=== PATIENT | female | born 1985 | race Caucasian/White ===

== ENCOUNTER 2017-02-01 00:22 | Emergency (ER) | payer MEDICAID ==
[~2017-02-01] VITALS: Ht 154.9 cm; Wt 56.7 kg
[~2017-02-01 00:22] MED LIST: ALBUAER3 IN; LORA-622 PO; MOME200A INH; MONT10TA34 OR
[2017-02-01] MEDS ORDERED: ALBUTEROL SULF 2.5 MG/0.5ML(0.5%) NEB SOLN ONE (00:35)
[2017-02-01] MEDS ORDERED: methylPREDNISolone SOD SUCC 125 MG/2 ML VL IV ONE (00:45)
[2017-02-01] MEDS ORDERED: ALBUTEROL SULF 2.5 MG/0.5ML(0.5%) NEB SOLN NEB ONE (00:45)
[2017-02-01 00:47] LABS: Basophils # (auto) 0.2 uL; Basophils % (auto) 1.8 % (0.0-2.0); Eosinophils # (auto) 0.5 uL; Eosinophils % (auto) 4.8 % (0.0-7.0); Hematocrit 42.1 % (36.0-46.0); Hemoglobin 13.8 g/dL (12.2-16.2); Lymphocytes # (auto) 4.7 uL; Lymphocytes % (auto) 44.2 % (10.0-50.0); Mean Corpuscular Hemoglobin 27.9 pg (28.0-32.0); Mean Corpuscular Hgb Conc. 32.7 g/dL (32.0-36.0); Mean Corpuscular Volume 85.4 fL (80.0-100.0); Mean Platelet Volume 8.3 fL (7.4-10.4); Monocytes # (auto) 0.9 uL; Neutrophils # (auto) 4.4 uL; Neutrophils % (auto) 41.2 % (37.0-80.0); Platelet Count (auto) 399 10^3/uL (140-450); Red Cell Distribution Width 13.8 % (11.6-16.0); White Blood Cell 10.7 10^3/uL (4.4-10.8)
[2017-02-01] MEDS ORDERED: ONDANSETRON HCL 4 MG/2 ML VIAL IV ONE (01:00)
[2017-02-01 01:06] LABS: Albumin 3.8 g/dL (3.4-5.0); BUN/Creatinine Ratio 28.1; Calcium 8.1 mg/dL (8.5-10.1); Potassium 3.7 mmol/L (3.5-5.1)
[2017-02-01 01:09] LABS: Bilirubin, Total 0.2 mg/dL (0.2-1.0)
[2017-02-01 02:44] VITALS: BP 117/58
== END 2017-02-01 02:54 | disposition home or self-care (01) ==
LOC: EDBD 00:22 → ER 02:20
DX: J45.901 Unspecified asthma with (acute) exacerbation (principal); J06.9 Acute upper respiratory infection, unspecified
CPT/HCPCS: 36415; 71010; 80053; 84702; 85025; 94644; 94660; 94761; 96374; 96375; 99285; J2405; J2930

== ENCOUNTER 2017-06-17 15:04 | Observation (INO) | payer MEDICAID ==
[~2017-06-17] VITALS: Ht 157.5 cm; Wt 54.4 kg
[2017-06-17] MEDS ORDERED: methylPREDNISolone SOD SUCC 125 MG/2 ML VL ONE (15:19)
[2017-06-17] MEDS ORDERED: methylPREDNISolone SOD SUCC 125 MG/2 ML VL IV ONE (15:30)
[2017-06-17] MEDS ORDERED: SODIUM CHLORIDE 0.9% 1,000 ML IV ONE (15:30)
[2017-06-17] MEDS ORDERED: ALBUTEROL SULF 2.5 MG/0.5ML(0.5%) NEB SOLN HHN ONE (15:30)
[2017-06-17] MEDS ORDERED: IPRATROPIUM BROM 0.5 MG/2.5ML INH SOL HHN ONE (15:30)
[2017-06-17 15:35] LABS: Basophils # (auto) 0.1 uL; Basophils % (auto) 0.9 % (0.0-2.0); CONDITION Y; Eosinophils # (auto) 0.5 uL; Eosinophils % (auto) 7.6 % (0.0-7.0); Hematocrit 47.5 % (36.0-46.0); Hemoglobin 15.9 g/dL (12.2-16.2); Lymphocytes # (auto) 2.6 uL; Lymphocytes % (auto) 43.6 % (10.0-50.0); Mean Corpuscular Hemoglobin 29.2 pg (28.0-32.0); Mean Corpuscular Hgb Conc. 33.5 g/dL (32.0-36.0); Mean Corpuscular Volume 87.1 fL (80.0-100.0); Mean Platelet Volume 8.5 fL (7.4-10.4); Monocytes # (auto) 0.5 uL; Monocytes % (auto) 8.5 % (0.0-12.0); Neutrophils # (auto) 2.3 uL; Neutrophils % (auto) 39.4 % (37.0-80.0); Platelet Count (auto) 396 10^3/uL (140-450); Red Cell Distribution Width 14.7 % (11.6-16.0); White Blood Cell 5.9 10^3/uL (4.4-10.8)
[2017-06-17 16:06] LABS: Albumin 4.6 g/dL (3.4-5.0); BUN/Creatinine Ratio 17.6; Bilirubin, Total 0.5 mg/dL (0.2-1.0); Calcium 8.2 mg/dL (8.5-10.1); Magnesium 2.6 mg/dL (1.6-2.6); Potassium 3.6 mmol/L (3.5-5.1); Total Protein 7.9 g/dL (6.4-8.2)
[2017-06-17 18:20] LABS: Urine Bilirubin Negative (Negative); Urine Color Yellow (Yellow); Urine Glucose Normal (Normal); Urine Mucus FEW (None Seen); Urine Nitrite Negative (Negative); Urine RBC <1 /hpf (0 - 4); Urine Squamous Epithelial Cell FEW /hpf (<5); Urine Urobilinogen Normal (Negative); Urine pH 5.5 (5.0-8.0)
[2017-06-17 18:26] LABS: Urine Blood 1+ /uL (Negative); Urine Ketone 1+ (Negative)
[2017-06-17 19:39] VITALS: BP 110/67
== END 2017-06-17 21:56 | disposition left against medical advice (07) | DRG 141 ==
LOC: EDBD 15:04 → ER 15:12 → OVERFLOW 15:26 → ER 21:56
PROVIDERS: ADMIT Family Medicine; ATTEND Family Medicine
DX: J45.901 Unspecified asthma with (acute) exacerbation (principal)
CPT/HCPCS: 36415; 71010; 80053; 81001; 83735; 85025; 87040; 94644; 96361; 96374; 99285; G0378; J2930; J7030

== ENCOUNTER 2017-12-26 15:14 | Emergency (ER) | payer MEDICAID ==
[~2017-12-26] VITALS: Ht 149.9 cm; Wt 52.2 kg
[2017-12-26 15:32] VITALS: BP 111/80
[2017-12-26] MEDS ORDERED: ALBUTEROL SULF 2.5 MG/0.5ML(0.5%) NEB SOLN NEB ONE ×2 (15:45→17:30)
[2017-12-26] MEDS ORDERED: IPRATROPIUM BROM 0.5 MG/2.5ML INH SOL NEB ONE ×2 (15:45→17:30)
== END 2017-12-26 18:11 | disposition home or self-care (01) ==
LOC: ER 15:18
DX: J45.901 Unspecified asthma with (acute) exacerbation (principal)
CPT/HCPCS: 71045; 94640

== ENCOUNTER 2019-04-02 06:35 | Emergency (ER) | payer MEDICAID, OTHER ==
[~2019-04-02] VITALS: Ht 152.4 cm; Wt 52.2 kg
[2019-04-02] MEDS ORDERED: SODIUM CHLORIDE 0.9% 1,000 ML IV ONE (06:55)
[2019-04-02] MEDS ORDERED: cefTRIAXone 1GM/50ML D5W 50 ML IV ONE (07:00)
[2019-04-02] MEDS ORDERED: methylPREDNISolone SOD SUCC 125 MG/2 ML VL IV ONE (07:00)
[2019-04-02] MEDS ORDERED: ALBUTEROL SULF 2.5 MG/0.5ML(0.5%) NEB SOLN NEB ONE (07:00)
[2019-04-02] MEDS ORDERED: IPRATROPIUM BROM 0.5 MG/2.5ML INH SOL NEB ONE (07:00)
[2019-04-02 08:06] LABS: Basophils # (auto) 0.1 uL; Basophils % (auto) 1.3 % (0.0-2.0); Eosinophils # (auto) 0.8 uL; Eosinophils % (auto) 11.6 % (0.0-7.0); Hemoglobin 14.7 g/dL (12.2-16.2); Lymphocytes # (auto) 1.7 uL; Lymphocytes % (auto) 23.2 % (10.0-50.0); Mean Corpuscular Hemoglobin 29.2 pg (28.0-32.0); Mean Corpuscular Hgb Conc. 32.7 g/dL (32.0-36.0); Mean Corpuscular Volume 89.3 fL (80.0-100.0); Monocytes # (auto) 0.5 uL; Monocytes % (auto) 6.4 % (0.0-12.0); Neutrophils # (auto) 4.1 uL; Neutrophils % (auto) 57.5 % (37.0-80.0); Platelet Count (auto) 315 10^3/uL (140-450); Red Blood Cells 5.04 10^6/uL (4.0-5.20); Red Cell Distribution Width 13.8 % (11.8-14.3); White Blood Cell 7.2 10^3/uL (4.4-10.8)
[2019-04-02 08:29] LABS: BUN/Creatinine Ratio 22.1
[2019-04-02 08:32] LABS: Bilirubin, Total 0.6 mg/dL (0.2-1.0); Total Protein 7.9 g/dL (6.4-8.2)
[2019-04-02 08:41] LABS: Urine Bacteria FEW /hpf (None Seen); Urine Blood Negative /uL (Negative); Urine Mucus FEW (None Seen); Urine Specific Gravity 1.026 (1.001-1.035); Urine WBC 2 /hpf (0 - 5)
[2019-04-02 09:56] VITALS: BP 117/77
== END 2019-04-02 09:46 | disposition home or self-care (01) ==
LOC: ER 06:35 → EDUNIT# 06:35 → EDBD 06:35 → ER 09:46
DX: J45.901 Unspecified asthma with (acute) exacerbation (principal); N39.0 Urinary tract infection, site not specified
CPT/HCPCS: 36415; 71045; 80053; 81001; 85025; 93005; 94640; 94761; 96365; 96366; 96375; 99284; J0696; J2930; J7030; J7611; J7644

== ENCOUNTER 2019-06-01 19:55 | Inpatient (IN) | payer MEDICAID, OTHER ==
[~2019-06-01] VITALS: Ht 152.4 cm; Wt 55.2 kg
[2019-06-01 12:40] VITALS: BP 106/64
[2019-06-01] MEDS ORDERED: IPRATROPIUM BROM 0.5 MG/2.5ML INH SOL NEB ONE (20:00)
[2019-06-01] MEDS ORDERED: ALBUTEROL SULF 2.5 MG/0.5ML(0.5%) NEB SOLN NEB ONE (20:00)
[2019-06-01] MEDS ORDERED: ALBUTEROL SULF 2.5 MG/0.5ML(0.5%) NEB SOLN ONE (20:05)
[2019-06-01] MEDS ORDERED: ACCU-CHEK COMFORT CURVE STRIP VI ONE (20:15)
[2019-06-01] MEDS ORDERED: LABETALOL HCL 5 MG/ML ML 20ML VIAL IV ONE (20:15)
[2019-06-01] MEDS ORDERED: NALOXONE HCL 0.4 MG/ML VIAL IV ONE (20:45)
[2019-06-01 20:46] LABS: Hematocrit 46.1 % (36.0-46.0); Hemoglobin 14.8 g/dL (12.2-16.2); Mean Corpuscular Hemoglobin 28.6 pg (28.0-32.0); Mean Corpuscular Hgb Conc. 32.1 g/dL (32.0-36.0); Mean Corpuscular Volume 89.3 fL (80.0-100.0); Platelet Count (auto) 444 10^3/uL (140-450); Red Blood Cells 5.16 10^6/uL (4.0-5.20); Red Cell Distribution Width 14.4 % (11.8-14.3); White Blood Cell 19.5 10^3/uL (4.4-10.8)
[2019-06-01 20:50] LABS: Basophils % (manual) 0 (0.0-2.0); Blast Cells 0; Metamyelocytes % 0; Myelocytes % 0; Promyelocytes % 0; Reactive Lymphocytes 0
[2019-06-01 21:06] LABS: Albumin 3.9 g/dL (3.4-5.0); Calcium 8.4 mg/dL (8.5-10.1); Potassium 3.7 mmol/L (3.5-5.1)
[2019-06-01 21:08] LABS: Salicylate < 1.7 mg/dL (2.8-20.0)
[2019-06-01 21:10] LABS: Bilirubin, Total 0.2 mg/dL (0.2-1.0); Total Protein 7.9 g/dL (6.4-8.2)
[2019-06-01 21:14] LABS: Acetaminophen < 2.0 ug/mL (10-30)
[2019-06-01 21:30] LABS: Urine Bacteria FEW /hpf (None Seen); Urine Blood TRACE /uL (Negative); Urine Hyaline Cast MANY /lpf (0 - 2); Urine Mucus FEW (None Seen); Urine Specific Gravity 1.017 (1.001-1.035); Urine WBC 3 /hpf (0 - 5)
[2019-06-01 21:41] LABS: Alcohol, Urine < 3.0 mg/dL (0-5); Amphetamine Screen, Urine POSITIVE (NEGATIVE); Barbiturate Scree,Urine NEGATIVE (NEGATIVE); Benzodiazephine Screen, Urine NEGATIVE (NEGATIVE); Cannabinoid Screen, Urine NEGATIVE (NEGATIVE); Cocaine Screen, Urine NEGATIVE (NEGATIVE); Opiate Scree,Urine NEGATIVE (NEGATIVE); Phencyclidine Screen, Urine NEGATIVE (NEGATIVE)
[2019-06-01 21:43] LABS: Band Neutrophils % (manual) 3; Eosinophils % (manual) 6 (0-7); Lymphocytes % (manual) 48 (10.0-50.0); Monocytes % (manual) 7 (0-12)
[2019-06-01] MEDS ORDERED: methylPREDNISolone SOD SUCC 125 MG/2 ML VL IV ONE (22:30)
[2019-06-01] MEDS ORDERED: cefTRIAXone 1GM/50ML D5W 50 ML IV ONE (22:30)
[2019-06-01] MEDS ORDERED: ONDANSETRON HCL 4 MG/2 ML VIAL IV PRN (22:45)
[2019-06-01] MEDS ORDERED: SODIUM CHLORIDE 0.9% 500 ML IV ONE (22:45)
[2019-06-01] MEDS ORDERED: ACETAMINOPHEN 325 MG TAB PO PRN (22:45)
[2019-06-01] MEDS ORDERED: TEMAZEPAM 15 MG CAP PO PRN (22:45)
[2019-06-01 22:55] VITALS: BP 109/65
[2019-06-01] MEDS: ALBUTEROL SULF 2.5 MG/0.5ML(0.5%) NEB SOLN NEB SCH (23:18)
[2019-06-01] MEDS: IPRATROPIUM BROM 0.5 MG/2.5ML INH SOL NEB SCH (23:18)
--- NOTE | 2019-06-02 00:15 | NUR ---
MS admit from [facility] admitted to [facility] after SBAR received. Patient oriented to LASHON HULL, primary RN, unit, room 212, bed A, and unit policies regarding patient care and visiting hours. Patient weighed by bedscale and encouraged to call if they need something. All questions and concerns addressed, patient verbalized understanding. Pt is currently laying in bed with the rails up x2, bed is locked in the lowest position and the call light is within reach. Will continue to monitor.
[2019-06-02 03:14] VITALS: BP 106/64
[2019-06-02 05:35] VITALS: BP 105/65
[2019-06-02] MEDS: ALBUTEROL SULF 2.5 MG/0.5ML(0.5%) NEB SOLN NEB SCH ×2 (06:12→12:25)
[2019-06-02] MEDS: IPRATROPIUM BROM 0.5 MG/2.5ML INH SOL NEB SCH ×2 (06:12→12:24)
[2019-06-02 06:17] LABS: Basophils # (auto) 0 uL; Basophils % (auto) 0.3 % (0.0-2.0); Eosinophils # (auto) 0 uL; Eosinophils % (auto) 0.1 % (0.0-7.0); Hematocrit 41.7 % (36.0-46.0); Hemoglobin 13.7 g/dL (12.2-16.2); Lymphocytes # (auto) 0.4 uL; Lymphocytes % (auto) 5.6 % (10.0-50.0); Mean Corpuscular Hemoglobin 28.6 pg (28.0-32.0); Mean Corpuscular Hgb Conc. 32.8 g/dL (32.0-36.0); Mean Corpuscular Volume 87.2 fL (80.0-100.0); Monocytes # (auto) 0.1 uL; Monocytes % (auto) 0.8 % (0.0-12.0); Neutrophils # (auto) 7.4 uL; Neutrophils % (auto) 93.2 % (37.0-80.0); Nucleated Red Blood Cells % 0.1 %; Platelet Count (auto) 343 10^3/uL (140-450); Red Blood Cells 4.78 10^6/uL (4.0-5.20); Red Cell Distribution Width 14.5 % (11.8-14.3); White Blood Cell 7.9 10^3/uL (4.4-10.8)
[2019-06-02 06:34] LABS: BUN/Creatinine Ratio 20.5; Calcium 8.7 mg/dL (8.5-10.1); Potassium 3.8 mmol/L (3.5-5.1)
--- NOTE | 2019-06-02 07:23 | NUR ---
Opening Note Received report from shift boss RN. Patient is awake, alert and oriented x4. No signs or symptoms of distress noted at this time. Patient is on room air, patient denies shortness of breath at this time. Reviewed plan of care with patient, patient verbalized understanding. Bed in low and locked position, call light within reach. Will continue to monitor Q1 hour and PRN.
[2019-06-02 09:00] VITALS: BP 99/57
[2019-06-02] MEDS ORDERED: predniSONE 20 MG TAB PO ONE (10:00)
[2019-06-02] MEDS ORDERED: FAMOTIDINE 20 MG TAB PO SCH (10:00)
[2019-06-02] MEDS ORDERED: LORATADINE 10 MG TAB PO SCH (10:00)
--- NOTE | 2019-06-02 10:00 | NUR ---
Dr. Poon at bedside Dr. Poon at bedside reviewing plan of care with patient.
--- NOTE | 2019-06-02 11:10 | NUR ---
Cruz catheter removed Cruz catheter removed with clean technique following deflation of balloon. Patient tolerated well, patient denies pain. Patient instructed to call for assistance to the restroom. Will continue to monitor Q1 hour an PRN.
[2019-06-02] MEDS ORDERED: MONT10TA23 PO (11:45)
[2019-06-02] MEDS ORDERED: FLUT110A INH (11:45)
[2019-06-02 13:00] VITALS: BP 96/50
[2019-06-02 13:14] VITALS: BP 96/50
--- NOTE | 2019-06-02 14:33 | NUR ---
Discharge Discharge instructions given as ordered. Patient has no insurance. Patient provided with information on urgent care, [facility], and [facility], [facility], and continuum of care coordinators phone number. All questions and concerns addressed. Patient verbalized understanding. Patient given new prescriptions. IV catheter removed, catheter intact, pressure dressing applied. Patient ambulated to private vehicle with all personal belongings, accompanied by family. No signs or symptoms of distress noted at this time.
[2019-06-02] MEDS ORDERED: MONTELUKAST SODIUM 10 MG TAB PO SCH (22:00)
== END 2019-06-02 14:20 | disposition home or self-care (01) | DRG 682 ==
LOC: ER 19:55 → EDBD 19:55 → OVERFLOW 19:56 → CENTRAL 06-02 00:29
PROVIDERS: ADMIT Nurse Practitioner; ATTEND Nurse Practitioner
DX: N17.0 Acute kidney failure with tubular necrosis (principal); J96.02 Acute respiratory failure with hypercapnia; J44.1 Chronic obstructive pulmonary disease with (acute) exacerbation; J45.901 Unspecified asthma with (acute) exacerbation; E87.2 Acidosis; R65.10 Systemic inflammatory response syndrome (SIRS) of non-infectious origin without acute organ dysfunction; D72.829 Elevated white blood cell count, unspecified; F15.10 Other stimulant abuse, uncomplicated; Z91.010 Allergy to peanuts
CPT/HCPCS: 36415; 36600; 51702; 71045; 80048; 80053; 80307; 80320; 80329; 81001; 81025; 82805; 83605; 85007; 85025; 85027; 87040; 93005; 94640; 96365; 96375; G0378; J0696

== ENCOUNTER 2019-08-11 20:05 | Emergency (ER) | payer MEDICAID, OTHER ==
[~2019-08-11] VITALS: Ht 149.9 cm; Wt 52.2 kg
[~2019-08-11 20:05] MED LIST changes: +FLUT110A INH; -LORA-622 PO; -MOME200A INH; +MONT10TA23 PO; -MONT10TA34 OR
[2019-08-11 20:23] VITALS: BP 109/62
[2019-08-11] MEDS ORDERED: IPRATROPIUM BROM 0.5 MG/2.5ML INH SOL NEB ONE (20:30)
[2019-08-11] MEDS ORDERED: ALBUTEROL SULF 2.5 MG/0.5ML(0.5%) NEB SOLN NEB ONE (20:30)
== END 2019-08-11 22:13 | disposition left against medical advice (07) ==
LOC: ER 20:05
DX: J45.909 Unspecified asthma, uncomplicated (principal); Z53.21 Procedure and treatment not carried out due to patient leaving prior to being seen by health care provider
CPT/HCPCS: 94640; 99281; J7611; J7644

== ENCOUNTER 2022-09-09 05:42 | Emergency (ER) | payer OTHER ==
[~2022-09-09] VITALS: Ht 162.6 cm; Wt 70.0 kg
[2022-09-09 06:07] VITALS: BP 133/84
[2022-09-09] MEDS ORDERED: methylPREDNISolone SOD SUCC 125 MG/2 ML VL IV ONE (07:00)
[2022-09-09] MEDS ORDERED: IPRATROPIUM BROM 0.5 MG/2.5ML INH SOL NEB ONE ×2 (07:00)
[2022-09-09] MEDS ORDERED: ALBUTEROL SULF 2.5 MG/0.5ML(0.5%) NEB SOLN NEB ONE (07:00)
[2022-09-09 07:13] LABS: Basophils # (auto) 0.1 10 ^3/uL (0-0.2); Basophils % (auto) 1.8 % (0.0-2.0); Eosinophils # (auto) 0.5 10 ^3/uL (0-0.8); Eosinophils % (auto) 6.2 % (0.0-7.0); Hematocrit 39.1 % (36.0-46.0); Hemoglobin 12.8 g/dL (12.2-16.2); Lymphocytes # (auto) 2.9 10 ^3/uL (0.4-5.4); Lymphocytes % (auto) 39.6 % (10.0-50.0); Mean Corpuscular Hemoglobin 26.6 pg (28.0-32.0); Mean Corpuscular Hgb Conc. 32.6 g/dL (32.0-36.0); Mean Corpuscular Volume 81.7 fL (80.0-100.0); Monocytes # (auto) 0.6 10 ^3/uL (0-1.3); Monocytes % (auto) 8.9 % (0.0-12.0); Neutrophils # (auto) 3.2 10 ^3/uL (1.6-8.6); Neutrophils % (auto) 43.5 % (37.0-80.0); Nucleated Red Blood Cells % 0.1 %; Red Blood Cells 4.79 10^6/uL (4.0-5.20); Red Cell Distribution Width 17.3 % (11.8-14.3); White Blood Cell 7.3 10^3/uL (4.4-10.8)
[2022-09-09 07:29] LABS: Potassium 3.7 mmol/L (3.5-5.1)
[2022-09-09 07:37] LABS: Albumin 3.6 g/dL (3.4-5.0); BUN/Creatinine Ratio 32.1; Bilirubin, Total 0.2 mg/dL (0.2-1.0); Calcium 8.6 mg/dL (8.5-10.1); Total Protein 6.9 g/dL (6.4-8.2)
[2022-09-09] MEDS ORDERED: PRED20TA2 PO (07:37)
[2022-09-09] MEDS ORDERED: PANT40TA2 PO (07:37)
== END 2022-09-09 10:40 | disposition home or self-care (01) ==
LOC: ER 05:42 → EDBD 05:42 → ER 10:39
DX: J45.901 Unspecified asthma with (acute) exacerbation (principal); J44.9 Chronic obstructive pulmonary disease, unspecified; Z79.899 Other long term (current) drug therapy; Z91.010 Allergy to peanuts
CPT/HCPCS: 36415; 71045; 80053; 85025; 85379; 94640; 96372; 99284; J2930; J7644

== ENCOUNTER 2023-01-13 11:34 | Emergency (ER) | payer OTHER ==
[~2023-01-13] VITALS: Ht 149.9 cm; Wt 60.7 kg
[~2023-01-13 11:34] MED LIST changes: +PANT40TA2 PO; +PRED20TA2 PO
[2023-01-13] MEDS ORDERED: SODIUM CHLORIDE 0.9% 1,000 ML IVB ONE (12:15)
[2023-01-13] MEDS ORDERED: ONDANSETRON HCL 4 MG/2 ML VIAL IV ONE (12:15)
[2023-01-13 12:43] LABS: Basophils # (auto) 0 10 ^3/uL (0-0.2); Eosinophils # (auto) 0 10 ^3/uL (0-0.8); Lymphocytes # (auto) 0.6 10 ^3/uL (0.4-5.4); Monocytes # (auto) 0.4 10 ^3/uL (0-1.3)
[2023-01-13 12:45] LABS: Basophils % (auto) 0.3 % (0.0-2.0); Eosinophils % (auto) 0.4 % (0.0-7.0); Hematocrit 40.9 % (36.0-46.0); Hemoglobin 13.8 g/dL (12.2-16.2); Lymphocytes % (auto) 5.1 % (10.0-50.0); Mean Corpuscular Hemoglobin 26.4 pg (28.0-32.0); Mean Corpuscular Hgb Conc. 33.6 g/dL (32.0-36.0); Mean Corpuscular Volume 78.4 fL (80.0-100.0); Monocytes % (auto) 3.6 % (0.0-12.0); Neutrophils # (auto) 9.7 10 ^3/uL (1.6-8.6); Neutrophils % (auto) 90.6 % (37.0-80.0); Red Blood Cells 5.22 10^6/uL (4.0-5.20); Red Cell Distribution Width 16.8 % (11.8-14.3); White Blood Cell 10.7 10^3/uL (4.4-10.8)
[2023-01-13 13:15] LABS: Albumin 3.7 g/dL (3.4-5.0); Calcium 8.4 mg/dL (8.5-10.1); Potassium 3.9 mmol/L (3.5-5.1)
[2023-01-13 13:16] LABS: Lactic Acid w/Reflex 2.3 mmol/L (0.4-2.0)
[2023-01-13 13:17] LABS: BUN/Creatinine Ratio 24.2
[2023-01-13 13:20] LABS: Bilirubin, Total 0.4 mg/dL (0.2-1.0); Total Protein 7.1 g/dL (6.4-8.2)
[2023-01-13] MEDS ORDERED: ONDA-144 PO (15:10)
[2023-01-13] MEDS ORDERED: CIPR-173 PO (15:10)
[2023-01-13 15:55] VITALS: BP 112/68
== END 2023-01-13 15:56 | disposition home or self-care (01) ==
LOC: EDBD 11:38 → ER 11:38
DX: K52.9 Noninfective gastroenteritis and colitis, unspecified (principal); N39.0 Urinary tract infection, site not specified; R10.2 Pelvic and perineal pain; J45.909 Unspecified asthma, uncomplicated; Z79.899 Other long term (current) drug therapy; Z91.018 Allergy to other foods; Z20.822 Contact with and (suspected) exposure to COVID-19
CPT/HCPCS: 36415; 74176; 80053; 83605; 83690; 84702; 85025; 87426; 96361; 96374; 99285; J2405; J7030

== ENCOUNTER 2024-08-25 02:04 | Inpatient (IN) | payer OTHER ==
[2024-08-25] VITALS (17 sets, daily range): BP systolic 108–131; BP diastolic 55–84; PULSE 87–138; RESP 16–35; TEMP 97.7; O2SAT 98–100
[~2024-08-25] VITALS: Ht 149.9 cm; Wt 53.0 kg
[~2024-08-25 02:04] MED LIST changes: +CIPR-173 PO; +ONDA-144 PO
[2024-08-25 02:24] LABS: Basophils # (auto) 0.1 10 ^3/uL (0-0.2); Eosinophils # (auto) 0.2 10 ^3/uL (0-0.8); Lymphocytes # (auto) 2.8 10 ^3/uL (0.4-5.4); Mean Corpuscular Hemoglobin 26.5 pg (28.0-32.0); Monocytes # (auto) 0.4 10 ^3/uL (0-1.3)
[2024-08-25 02:25] LABS: Basophils % (auto) 1.1 % (0.0-2.0); Eosinophils % (auto) 1.9 % (0.0-7.0); Hematocrit 37.3 % (36.0-46.0); Hemoglobin 12.4 g/dL (12.2-16.2); Lymphocytes % (auto) 33.9 % (10.0-50.0); Mean Corpuscular Hgb Conc. 33.3 g/dL (32.0-36.0); Mean Corpuscular Volume 79.6 fL (80.0-100.0); Monocytes % (auto) 5.2 % (0.0-12.0); Neutrophils # (auto) 4.7 10 ^3/uL (1.6-8.6); Neutrophils % (auto) 57.9 % (37.0-80.0); Nucleated Red Blood Cells % 0.3 %; Platelet Count (auto) 431 10^3/uL (140-450); Red Blood Cells 4.69 10^6/uL (4.0-5.20); Red Cell Distribution Width 15.6 % (11.8-14.3); White Blood Cell 8.1 10^3/uL (4.4-10.8)
[2024-08-25] MEDS: IPRATROPIUM BROM 0.5 MG/2.5ML INH SOL NEB ONE ×2 (02:33→09:53)
[2024-08-25] MEDS: ALBUTEROL SULF 2.5 MG/0.5ML(0.5%) NEB SOLN NEB ONE ×4 (02:34→09:53)
[2024-08-25] MEDS: IPRATROPIUM BROM 0.5 MG/2.5ML INH SOL ONE (02:34)
[2024-08-25] MEDS: ALBUTEROL SULF 2.5 MG/0.5ML(0.5%) NEB SOLN ONE ×2 (02:34→18:27)
[2024-08-25] MEDS: methylPREDNISolone SOD SUCC 125 MG/2 ML VL IV ONE ×2 (02:39→10:02)
[2024-08-25] MEDS: MAGNESIUM SULFATE 1GM/100ML 100 ML IV SCH (02:39)
[2024-08-25] MEDS ORDERED: KETOROLAC TROMETH 30 MG/ML 1ML VIAL IV ONE (02:45)
[2024-08-25 03:01] LABS: Base Excess -3.3 mmol/L (-2.0-3.0)
[2024-08-25] MEDS: KETAMINE 50mg/ML 10ml Vial (500mg/10ml) IV ONE (03:08)
[2024-08-25 03:22] LABS: Chloride 108 mmol/L (98-107); Potassium 3.7 mmol/L (3.5-5.1); Sodium 139 mmol/L (136-145)
[2024-08-25 03:23] LABS: Anion Gap 10 (5-15); Calcium 9.5 mg/dL (8.7-10.4); Carbon Dioxide 21 mmol/L (20-31)
[2024-08-25 03:28] LABS: BUN/Creatinine Ratio 13.8 (10.0-20.0); Blood Urea Nitrogen 9 mg/dL (9-23); Glucose 109 mg/dL (74-106)
[2024-08-25] MEDS: MAGNESIUM SULFATE 1GM/100ML 200 ML IV ONE (05:06)
[2024-08-25] MEDS: KETAMINE 50mg/ML 10ml Vial 10 ML ONE (05:06)
[2024-08-25] MEDS: LORazepam 2MG/ML-1ML VIAL IV ONE (09:54)
[2024-08-25] MEDS: MAGNESIUM SULFATE 1GM/100ML 100 ML IV ONE ×2 (09:54→10:44)
[2024-08-25] MEDS: methylPREDNISolone 4 MG TAB PO ONE (09:57)
[2024-08-25] MEDS ORDERED: NITROGLYCERIN 0.4 MG SL TAB SL PRN (12:30)
[2024-08-25] MEDS ORDERED: DOCUSATE SOD 100 MG CAP PO PRN (12:30)
[2024-08-25] MEDS ORDERED: MORPHINE SULFATE INJ 2 MG/ml SYRG IV PRN ×2 (12:30)
[2024-08-25] MEDS: ALBUTEROL SULF 2.5 MG/0.5ML(0.5%) NEB SOLN NEB SCH (14:15)
[2024-08-25] MEDS: HYDROcodone-ACET 5/325MG TAB PO PRN (16:45)
[2024-08-25] MEDS: methylPREDNISolone SOD SUCC 40 MG/ML VL IV SCH (17:44)
[2024-08-25] MEDS: MONTELUKAST SODIUM 10 MG TAB PO SCH (20:45)
[2024-08-25] MEDS: TEMAZEPAM 15 MG CAP PO PRN (20:45)
[2024-08-25] MEDS: ONDANSETRON HCL 4 MG/2 ML VIAL IV PRN (20:45)
[2024-08-26] VITALS (9 sets, daily range): BP systolic 84–101; BP diastolic 46–59; PULSE 80–105; RESP 16–20; TEMP 97.7–98; O2SAT 94–100
[2024-08-26 07:07] LABS: Red Cell Distribution Width 16.4 % (11.8-14.3)
[2024-08-26 07:14] LABS: Hematocrit 36.5 % (36.0-46.0); Hemoglobin 11.9 g/dL (12.2-16.2); Mean Corpuscular Hemoglobin 25.9 pg (28.0-32.0); Mean Corpuscular Hgb Conc. 32.7 g/dL (32.0-36.0); Mean Corpuscular Volume 79.2 fL (80.0-100.0); Platelet Count (auto) 477 10^3/uL (140-450); Red Blood Cells 4.61 10^6/uL (4.0-5.20); White Blood Cell 26.6 10^3/uL (4.4-10.8)
[2024-08-26 07:19] LABS: Band Neutrophils % (manual) 0; Basophils % (manual) 0 (0.0-2.0); Blast Cells 0; Eosinophils % (manual) 0 (0-7); Metamyelocytes % 0; Myelocytes % 0; Promyelocytes % 0; Reactive Lymphocytes 0
[2024-08-26 07:30] LABS: Albumin 4.2 g/dL (3.2-4.8); Alkaline Phosphatase 82 U/L (46-116); Anion Gap 9 (5-15); Aspartate Aminotransferase 14 U/L (13-40); BUN/Creatinine Ratio 12.5 (10.0-20.0); Blood Urea Nitrogen 7 mg/dL (9-23); Calcium 9.3 mg/dL (8.7-10.4); Carbon Dioxide 23 mmol/L (20-31); Chloride 108 mmol/L (98-107); Glucose 138 mg/dL (74-106); Potassium 4.6 mmol/L (3.5-5.1); Sodium 140 mmol/L (136-145)
[2024-08-26 07:31] LABS: Bilirubin, Total 0.3 mg/dL (0.2-1.0); Total Protein 6.4 g/dL (5.7-8.2)
[2024-08-26 07:36] LABS: Alanine Aminotransferase 9 U/L (7-40)
[2024-08-26] MEDS: IBUPROFEN 600 MG TAB PO ONE (08:46)
[2024-08-26 09:17] LABS: Lymphocytes % (manual) 3 (10.0-50.0); Monocytes % (manual) 1 (0-12); Platelet Estimate Adequate
[2024-08-26] MEDS: FAMOTIDINE 20 MG TAB PO SCH (10:47)
[2024-08-26] MEDS: ENOXAPARIN SOD 40 MG/0.4 ML SYRINGE SC SCH (10:47)
[2024-08-26] MEDS: ACETAMINOPHEN 325 MG TAB PO PRN (15:24)
[2024-08-26] MEDS ORDERED: PRED20TA2 PO (15:57)
[2024-08-26] MEDS ORDERED: AZIT-43 PO (15:57)
== END 2024-08-26 17:00 | disposition home or self-care (01) | DRG 133 ==
LOC: ER 02:04 → EDBD 02:04 → OVERFLOW 12:27 → WEST WING 19:10
PROVIDERS: ADMIT Nurse Practitioner; ATTEND Nurse Practitioner
PROC: 5A09357 Assistance with Respiratory Ventilation, Less than 24 Consecutive Hours, Continuous Positive Airway Pressure (ICD-10-PCS; principal; 2024-08-25)
DX: J96.01 Acute respiratory failure with hypoxia (principal); J45.51 Severe persistent asthma with (acute) exacerbation; R00.0 Tachycardia, unspecified; Z83.3 Family history of diabetes mellitus; Z91.010 Allergy to peanuts; Z79.899 Other long term (current) drug therapy; Z80.9 Family history of malignant neoplasm, unspecified
CPT/HCPCS: 36415; 36600; 71045; 80048; 80053; 82805; 84702; 85007; 85025; 85027; 93005; 94640; 94645; 94660; 99291; G0378; J2405

== ENCOUNTER 2024-08-29 18:24 | Emergency (ER) | payer OTHER ==
[~2024-08-29] VITALS: Ht 149.9 cm; Wt 54.5 kg
[2024-08-29 18:24] VITALS: BP 125/81; PULSE 103
[~2024-08-29 18:24] MED LIST changes: +AZIT-43 PO; -CIPR-173 PO
[2024-08-29 19:47] VITALS: RESP 18; O2SAT 100
[2024-08-29] MEDS: ALBUTEROL SULF 2.5 MG/0.5ML(0.5%) NEB SOLN NEB ONE (19:47)
[2024-08-29] MEDS: methylPREDNISolone SOD SUCC 125 MG/2 ML VL IM ONE (20:09)
== END 2024-08-29 20:05 | disposition left against medical advice (07) ==
LOC: EDBD 18:24 → EDUNIT# 18:24 → ER 18:33
DX: J45.901 Unspecified asthma with (acute) exacerbation (principal)
CPT/HCPCS: 94640

== ENCOUNTER 2024-09-08 20:29 | Emergency (ER) | payer OTHER ==
[~2024-09-08] VITALS: Ht 149.9 cm; Wt 59.1 kg
[2024-09-08] MEDS: ALBUTEROL SULF 2.5 MG/0.5ML(0.5%) NEB SOLN NEB ONE (21:02)
[2024-09-08] MEDS: IPRATROPIUM BROM 0.5 MG/2.5ML INH SOL NEB ONE (21:03)
[2024-09-08 21:36] LABS: Basophils # (auto) 0.1 10 ^3/uL (0-0.2); Basophils % (auto) 0.9 % (0.0-2.0); Eosinophils # (auto) 0.2 10 ^3/uL (0-0.8); Hematocrit 35.1 % (36.0-46.0); Hemoglobin 11.6 g/dL (12.2-16.2); Lymphocytes # (auto) 2.5 10 ^3/uL (0.4-5.4); Lymphocytes % (auto) 29.2 % (10.0-50.0); Mean Corpuscular Hemoglobin 25.7 pg (28.0-32.0); Mean Corpuscular Volume 77.9 fL (80.0-100.0); Monocytes # (auto) 0.6 10 ^3/uL (0-1.3); Monocytes % (auto) 6.6 % (0.0-12.0); Neutrophils # (auto) 5.2 10 ^3/uL (1.6-8.6); Neutrophils % (auto) 61.3 % (37.0-80.0); Nucleated Red Blood Cells % 0.1 %; Platelet Count (auto) 423 10^3/uL (140-450); Red Blood Cells 4.51 10^6/uL (4.0-5.20); Red Cell Distribution Width 16.7 % (11.8-14.3); White Blood Cell 8.5 10^3/uL (4.4-10.8)
[2024-09-08 21:43] LABS: Chloride 112 mmol/L (98-107); Potassium 3.4 mmol/L (3.5-5.1); Sodium 142 mmol/L (136-145)
[2024-09-08 21:44] LABS: Anion Gap 10 (5-15); Calcium 9.1 mg/dL (8.7-10.4); Carbon Dioxide 20 mmol/L (20-31)
[2024-09-08 21:49] LABS: Blood Urea Nitrogen 14 mg/dL (9-23); Glucose 110 mg/dL (74-106)
[2024-09-08] MEDS ORDERED: PRED20TA2 PO (22:36)
[2024-09-08] MEDS ORDERED: ALBUAER3 IN (22:36)
[2024-09-08] MEDS ORDERED: HYDR50TA32 PO (22:36)
[2024-09-09] MEDS: SODIUM CHLORIDE 0.9% 1,000 ML IV ONE (00:11)
[2024-09-09] MEDS: POTASSIUM CHL 20 Meq TABLET PO ONE (00:11)
[2024-09-09] MEDS: methylPREDNISolone SOD SUCC 125 MG/2 ML VL IV ONE (00:11)
[2024-09-09 00:12] VITALS: BP 111/76; PULSE 80; RESP 18; TEMP 98.1; O2SAT 97
== END 2024-09-09 01:04 | disposition home or self-care (01) ==
LOC: ER 20:29
DX: J45.901 Unspecified asthma with (acute) exacerbation (principal); R10.2 Pelvic and perineal pain; F45.8 Other somatoform disorders; Z91.041 Radiographic dye allergy status; Z91.010 Allergy to peanuts; Z79.899 Other long term (current) drug therapy; Z79.51 Long term (current) use of inhaled steroids; Z79.52 Long term (current) use of systemic steroids
CPT/HCPCS: 36415; 71045; 80048; 83880; 84484; 84702; 85025; 93005; 94640; 96361; 96374; 99285; J2919; J7030

== ENCOUNTER 2024-09-11 16:23 | Inpatient (IN) | payer OTHER ==
[~2024-09-11] VITALS: Ht 149.9 cm; Wt 59.0 kg
[~2024-09-11 16:23] MED LIST changes: +HYDR50TA32 PO
[2024-09-11] MEDS: ALBUTEROL SULF 2.5 MG/0.5ML(0.5%) NEB SOLN NEB ONE (17:42)
[2024-09-11] MEDS: IPRATROPIUM BROM 0.5 MG/2.5ML INH SOL NEB ONE (17:42)
[2024-09-11 17:46] LABS: Base Excess -0.6 mmol/L (-2.0-3.0)
[2024-09-11 18:06] LABS: Urine Bacteria None Seen /hpf (None Seen)
[2024-09-11 18:10] LABS: Basophils # (auto) 0.1 10 ^3/uL (0-0.2); Eosinophils # (auto) 0 10 ^3/uL (0-0.8); Eosinophils % (auto) 0.3 % (0.0-7.0); Lymphocytes # (auto) 3.4 10 ^3/uL (0.4-5.4); Lymphocytes % (auto) 29.2 % (10.0-50.0); Mean Corpuscular Hemoglobin 25.3 pg (28.0-32.0); Red Cell Distribution Width 16.7 % (11.8-14.3); White Blood Cell 11.6 10^3/uL (4.4-10.8)
[2024-09-11 18:11] LABS: Hematocrit 36.5 % (36.0-46.0); Hemoglobin 11.8 g/dL (12.2-16.2); Mean Corpuscular Hgb Conc. 32.3 g/dL (32.0-36.0); Mean Corpuscular Volume 78.4 fL (80.0-100.0); Monocytes # (auto) 0.9 10 ^3/uL (0-1.3); Monocytes % (auto) 7.9 % (0.0-12.0); Neutrophils # (auto) 7.1 10 ^3/uL (1.6-8.6); Neutrophils % (auto) 61.6 % (37.0-80.0); Platelet Count (auto) 450 10^3/uL (140-450); Red Blood Cells 4.66 10^6/uL (4.0-5.20)
[2024-09-11 18:16] LABS: Alanine Aminotransferase 18 U/L (7-40); Alkaline Phosphatase 73 U/L (46-116); Anion Gap 4 (5-15); Aspartate Aminotransferase < 8 U/L (13-40); Blood Urea Nitrogen 18 mg/dL (9-23); Calcium 9.6 mg/dL (8.7-10.4); Carbon Dioxide 29 mmol/L (20-31); Chloride 108 mmol/L (98-107); Glucose 84 mg/dL (74-106); Potassium 4.1 mmol/L (3.5-5.1); Sodium 141 mmol/L (136-145)
[2024-09-11 18:17] LABS: Albumin 4.2 g/dL (3.2-4.8); Bilirubin, Total 0.5 mg/dL (0.2-1.0); Total Protein 6.4 g/dL (5.7-8.2)
[2024-09-11 18:29] LABS: Amphetamine Screen, Urine Neg (NEGATIVE); Barbiturate Scree,Urine Neg (NEGATIVE); Benzodiazephine Screen, Urine Neg (NEGATIVE); Cannabinoid Screen, Urine Neg (NEGATIVE); Cocaine Screen, Urine Neg (NEGATIVE); Opiate Scree,Urine Neg (NEGATIVE); Phencyclidine Screen, Urine Neg (NEGATIVE)
[2024-09-11 18:40] LABS: Urine Blood Negative /uL (Negative); Urine Clarity Clear (Clear); Urine Color Light-Yellow (Yellow); Urine Protein, UAD Negative (Negative); Urine Specific Gravity 1.023 (1.001-1.035); Urine Urobilinogen Normal (Negative); Urine WBC <1 /hpf (0 - 5)
[2024-09-11 21:03] VITALS: PULSE 95; RESP 20; O2SAT 98
[2024-09-11 21:45] LABS: COVID19 ANTIGEN SOFIA FIA NEGATIVE (NEGATIVE); Rapid Influenza A Negative (Negative); Rapid Influenza B Negative (Negative)
[2024-09-11] MEDS ORDERED: MORPHINE SULFATE INJ 2 MG/ml SYRG IV PRN ×2 (22:45)
[2024-09-11] MEDS ORDERED: ONDANSETRON HCL 4 MG/2 ML VIAL IV PRN (22:45)
[2024-09-11] MEDS ORDERED: ACETAMINOPHEN 325 MG TAB PO PRN (22:45)
[2024-09-11] MEDS ORDERED: TEMAZEPAM 15 MG CAP PO PRN (22:45)
[2024-09-11] MEDS ORDERED: NITROGLYCERIN 0.4 MG SL TAB SL PRN (22:45)
[2024-09-11 23:35] VITALS: BP 133/68; PULSE 95; RESP 18; TEMP 98.1; O2SAT 98
[2024-09-12] VITALS (9 sets, daily range): BP systolic 113–116; BP diastolic 73–78; PULSE 80–91; RESP 17–20; TEMP 97.7–98.3; O2SAT 90–100
[2024-09-12 05:42] LABS: Basophils # (auto) 0.1 10 ^3/uL (0-0.2); Eosinophils # (auto) 0.1 10 ^3/uL (0-0.8); Nucleated Red Blood Cells % 0.1 %; Platelet Count (auto) 406 10^3/uL (140-450); Red Cell Distribution Width 16.4 % (11.8-14.3)
[2024-09-12 05:46] LABS: Eosinophils % (auto) 1.3 % (0.0-7.0); Hematocrit 35.2 % (36.0-46.0); Hemoglobin 11.4 g/dL (12.2-16.2); Lymphocytes # (auto) 3.8 10 ^3/uL (0.4-5.4); Lymphocytes % (auto) 43.7 % (10.0-50.0); Mean Corpuscular Hemoglobin 25.5 pg (28.0-32.0); Mean Corpuscular Hgb Conc. 32.5 g/dL (32.0-36.0); Mean Corpuscular Volume 78.3 fL (80.0-100.0); Monocytes # (auto) 0.6 10 ^3/uL (0-1.3); Monocytes % (auto) 6.4 % (0.0-12.0); Neutrophils # (auto) 4.2 10 ^3/uL (1.6-8.6); Neutrophils % (auto) 47.6 % (37.0-80.0); White Blood Cell 8.8 10^3/uL (4.4-10.8)
[2024-09-12 05:59] LABS: Alanine Aminotransferase 14 U/L (7-40); Alkaline Phosphatase 72 U/L (46-116); Anion Gap 8 (5-15); BUN/Creatinine Ratio 27.1 (10.0-20.0); Blood Urea Nitrogen 16 mg/dL (9-23); Calcium 8.9 mg/dL (8.7-10.4); Carbon Dioxide 25 mmol/L (20-31); Chloride 109 mmol/L (98-107); Glucose 86 mg/dL (74-106); Potassium 3.7 mmol/L (3.5-5.1); Sodium 142 mmol/L (136-145)
[2024-09-12 06:00] LABS: Albumin 3.6 g/dL (3.2-4.8)
[2024-09-12 06:01] LABS: Aspartate Aminotransferase 11 U/L (13-40); Bilirubin, Total 0.3 mg/dL (0.2-1.0); Total Protein 5.7 g/dL (5.7-8.2)
[2024-09-12] MEDS: HYDROcodone-ACET 5/325MG TAB PO PRN (07:58)
[2024-09-12] MEDS: SODIUM CHLORIDE 0.9% 1,000 ML IV SCH (07:59)
[2024-09-12] MEDS: SODIUM CHLORIDE 0.9% 500 ML IV ONE (07:59)
[2024-09-12] MEDS: FAMOTIDINE 20 MG TAB PO SCH (10:44)
[2024-09-12] MEDS: ENOXAPARIN SOD 40 MG/0.4 ML SYRINGE SC SCH (10:44)
[2024-09-12] MEDS ORDERED: BUDESONIDE (INHALATION) 0.5 MG/2 ML NEB NEB SCH (10:45)
[2024-09-12] MEDS: BUDESONIDE (INHALATION) 0.5 MG/2 ML NEB NEB SCH (18:23)
[2024-09-12] MEDS: ALBUTEROL SULF 2.5 MG/0.5ML(0.5%) NEB SOLN NEB PRN (18:23)
[2024-09-12] MEDS: methylPREDNISolone SOD SUCC 125 MG/2 ML VL IV ONE (23:49)
[2024-09-13] VITALS (11 sets, daily range): BP systolic 109–116; BP diastolic 65–79; PULSE 94–121; RESP 16–20; TEMP 36.7; O2SAT 96–99
[2024-09-13] MEDS: LORazepam 2MG/ML-1ML VIAL IV PRN (03:25)
[2024-09-13] MEDS: methylPREDNISolone SOD SUCC 40 MG/ML VL IV SCH (09:58)
[2024-09-13] MEDS ORDERED: MONT-8 PO (12:33)
[2024-09-13] MEDS ORDERED: PRED20TA2 PO (12:34)
== END 2024-09-13 14:35 | disposition home or self-care (01) | DRG 141 ==
LOC: ER 16:23 → OVERFLOW 22:34 → WEST WING 09-13 03:00
PROVIDERS: ADMIT Nurse Practitioner; ATTEND Nurse Practitioner
DX: J45.901 Unspecified asthma with (acute) exacerbation (principal); J96.01 Acute respiratory failure with hypoxia; F41.9 Anxiety disorder, unspecified; R00.0 Tachycardia, unspecified; Z83.3 Family history of diabetes mellitus; Z91.010 Allergy to peanuts; T48.6X5A Adverse effect of antiasthmatics, initial encounter; Y92.89 Other specified places as the place of occurrence of the external cause
CPT/HCPCS: 36415; 36600; 71045; 71250; 80053; 80307; 81001; 82805; 83605; 83735; 83880; 84484; 85025; 85379; 87081; 87426; 87804; 93005; 94640; G0378

== ENCOUNTER 2024-10-23 05:05 | Emergency (ER) | payer OTHER ==
[~2024-10-23] VITALS: Ht 149.9 cm; Wt 65.4 kg
[~2024-10-23 05:05] MED LIST changes: -AZIT-43 PO; +MONT-8 PO
[2024-10-23] MEDS: ALBUTEROL SULF 2.5 MG/0.5ML(0.5%) NEB SOLN NEB ONE (06:18)
[2024-10-23] MEDS: IPRATROPIUM BROM 0.5 MG/2.5ML INH SOL NEB ONE (06:19)
--- NOTE | 2024-10-23 07:28 | ED.PDOC ---
SOB-HPI HPI Comments 39 Y F with a PMHX of asthma, presents to the ED with CC of SOB. Patient states that she has been having SOB with associated symptoms of chills, body aches, and wheezing for 2 days. Patients currently uses an inhaler at home with breo, a maintenance inhaler, and receives a monthly nucala injections. Patient denies any tobacco usage, ETOH, or illicit drugs. Patients denies any vomiting or diarrhea. Chief Complaint: Asthma Time Seen by MD: 07:17 Primary Care Provider: Reviewed notes: Nurses Notes, Medications, Allergies Mode of Arrival: Ambulatory Severity: Mild Timing: Days Duration: Since onset Context: At Rest History of: Asthma Modifying Factors: Nothing Associated Signs and Symptoms: Wheeze Past Medical History PAST MEDICAL HISTORY: Asthma Surgical History: Denies all surgeries VOCATIONAL TRAINER History: Denies all VOCATIONAL TRAINER Hx Family History Family History: Family hx of DM, Family hx of Cancer Social History Smoker: Non-Smoker Alcohol: Denies ETOH Use Drugs: Denies Drug Use Lives In: Home Constitutional: reports: chills; denies: diaphoresis, fatigue, fever, malaise, sweats, weakness, others EENTM: denies: blurred vision, double vision, ear bleeding, ear discharge, ear drainage, ear pain, ear ringing, eye pain, eye redness, hearing loss, mouth pain, mouth swelling, nasal discharge, nose bleeding, nose congestion, nose pain, photophobia, tearing, throat pain, throat swelling, voice changes, others Respiratory: reports: shortness of breath, wheezing; denies: cough, hemoptysis, orthopnea, SOB at rest, SOB with excertion, stridor, others Cardiovascular: denies: chest pain, dizzy spells, diaphoresis, Dyspnea on exertion, edema, irregular heart beat, left arm pain, lightheadedness, palpitations, PND, syncope, others Gastrointestinal: denies: abdomen distended, abdominal pain, blood streaked bowels, constipated, diarrhea, dysphagia, difficulty swallowing, hematemesis, melena, nausea, poor appetite, poor fluid intake, rectal bleeding, rectal pain, vomiting, others Neurological: denies: dizziness, fainting, headache, left sided numbness, left sided weakness, numbness, paresthesia, pre-existing deficit, right sided numbness, right sided weakness, seizure, speech problems, tingling, tremors, weakness, others Musculoskeletal: denies: back pain, gout, joint pain, joint swelling, muscle pain, muscle stiffness, neck pain, others Integumetry: denies: bruises, change in color, change in hair/nails, dryness, laceration, lesions, lumps, rash, wounds, others Allergic/Immunocompromised: denies: Difficulty Healing, Frequent Infections, Hives, Itching, others Hematologic/Lymphatic: denies: anemia, blood clots, easy bleeding, easy bruising, swollen glands, others Endocrine: denies: excessive hunger, excessive sweating, excessive thirst, excessive urination, flushing, intolerance to cold, intolerance to heat, unexplained weight gain, unexplained weight loss, others Psychiatric: denies: anxiety, bipolar disorder, depression, hopeless, panic disorder, schizophrenia, sleepless, suicidal, others All Other Systems: Reviewed and Negative Physical Exam General Appearance: No Apparent Distress, Normal, Other (Patient cleared after an med neck is given to the patient) HEENT: Normal ENT Inspection, PERRL/EOMI, Pharynx Normal, TMs Normal, Other (Postnasal drip) Neck: Full Range of Motion, Non-Tender, Normal, Normal Inspection Respiratory: Chest Non-Tender, Lungs Clear, No Accessory Muscle Use, No Respiratory Distress, Normal Breath Sounds, Other (Prior to my examination patient received med neb) Cardiovascular: No Edema, No JVD, No Murmur, No Gallop, Normal Peripheral Pulses, Regular Rate/Rhythm Breast Exam: Deferred Gastrointestinal: No Organomegaly, Non Tender, No Pulsatile Mass, Normal Bowel Sounds, Soft Genitalia: Deferred Pelvic: Deferred Rectal: Deferred Extremities: No calf tenderness, Normal capillary refill, Normal inspection, Normal range of motion, Non-tender, No pedal edema Musculoskeletal : Apperance: Normal Neurologic: Alert, beef boner II-XII nml as Tested, No Motor Deficits, Normal Affect, Normal Mood, No Sensory Deficits Cerebellar Function: Normal Reflexes: Normal Skin: Dry, Normal Color, Warm Peripheral Pulses: 1+ carotid (R), 1+ carotid (L) Lymphatic: No Adenopathy Was a procedure done? Was a procedure done?: No Differential Dx Differential Diagnosis: Asthma, Bronchitis, Pneumonia, Respiratory Distress, Pharyngitis, URI X-Ray, Labs, Meds, VS Vital Signs Date Time Temp Pulse Resp B/P (MAP) Pulse Ox O2 Delivery O2 Flow Rate FiO2 10/23/24 10:18 98.9 10/23/24 07:48 100.8 120 17 137/78 (97) 96 100.8 10/23/24 07:39 17 100 Room Air* 0 21 10/23/24 07:38 100.8 10/23/24 06:20 18 95 Room Air* 0 21 10/23/24 06:20 95 Room Air* 0 21 10/23/24 05:20 100.2 117 20 124/76 (92) 95 Lab Test 10/23/24 08:30 Range/Units Urine Test Negative Negative Current Medications Medications (Trade) Dose Ordered Sig/Stephanie Route Start Time Stop Time Status Last Admin Albuterol (Ventolin Medneb) 2.5 mg ONCE ONCE NEB 10/23/24 06:15 10/23/24 06:16 DC 10/23/24 06:18 Ipratropium Lafe (Atrovent Medneb) 0.5 mg ONCE ONCE NEB 10/23/24 06:15 10/23/24 06:16 DC 10/23/24 06:19 Ondansetron HCl (Zofran Po) 8 mg ONCE ONCE PO 10/23/24 07:15 10/23/24 07:16 DC 10/23/24 07:35 Acetaminophen (Tylenol Tablet) 1,000 mg ONCE ONCE PO 10/23/24 07:45 10/23/24 07:46 DC 10/23/24 07:38 X-Ray, Labs, Meds, VS Comment Course in the emergency department eventful patient came in with acute asthma exacerbation The chest x-ray was done test is normal patient received Zofran 8 mg for nausea Patient eloped Time of 1ST Reevaluation: 08:17 Reevaluation 1ST: Unchanged Patient Education/Counseling: Diagnosis, Treatment Family Education/Counseling: No Family Present Departure 1 Departure Time of Disposition: 10:24 Impression: Primary Impression: Asthma exacerbation Qualified Codes: J45.41 - Moderate persistent asthma with (acute) exacerbation Disposition: 07 LEFT AWOL/ELOPED Condition: Good Additional Instructions: Continue present management Discharged With: Self Critical Care Note Critical Care Time?: No Stability Stability form required: No Heart Score Heart Score: Heart Score Response (Comments) Value History N/A 0 EKG N/A 0 Age <45 0 Risk Factors No known risk factors 0 Troponin N/A 0 Total 0 I personally scribed for CINDY TALBOT MD ([email or web address]) on 10/23/24 at 07:28. Electronically submitted by Jennifer Dye [email or web address]). CINDY TALBOT MD Oct 23, 2024 07:28
[2024-10-23] MEDS: ONDANSETRON ODT 4 MG TAB PO ONE (07:35)
[2024-10-23] MEDS: ACETAMINOPHEN 500 MG TAB or CAP PO ONE (07:38)
[2024-10-23 07:39] VITALS: RESP 17; O2SAT 100
[2024-10-23 07:48] VITALS: BP 137/78; PULSE 120; RESP 17; O2SAT 96
[2024-10-23 10:18] VITALS: TEMP 98.9
== END 2024-10-23 10:19 | disposition left against medical advice (07) ==
LOC: ER 05:05
DX: J45.901 Unspecified asthma with (acute) exacerbation (principal); Z32.02 Encounter for pregnancy test, result negative
CPT/HCPCS: 81025; 94640; 99283; Q0162

== ENCOUNTER 2025-02-26 20:20 | Emergency (ER) | payer OTHER ==
[~2025-02-26] VITALS: Ht 149.9 cm; Wt 66.0 kg
--- NOTE | 2025-02-26 22:09 | ED.PDOC ---
HPI (NEURO) HPI Comments HPI: 39 year old female presents to the ED with chief complaint of numbness. Patient reports that she has been experiencing episodes of intermittent nausea with associated dizziness, blurred vision to left eye, left facial numbness, and left sided headaches for the past 2 months along with lower abdominal pressure for the past 3 months. Also intermittent. Patient relays that she followed up with her PCP today due to having another episode of the symptoms and was advised to come to the ED due to her numbness to the left side of her face. Patient notes frequent urination as well, needing to go every 20 minutes for the past 2 months. Patient reports having chronic lower back pain. Initial Vitals: Temp: 98.9F BP: 128/86 HR: 91 RR: 20 O2 Sat: 99% Medical History: Asthma, seasonal allergies, chronic lower back pain Surgical History: Denies Social History: Denies smoking, ETOH, or drug use. Medications: Denies Allergies: Iodine HPI: Poor Historian. REVIEW OF SYSTEMS: CONSTITUTIONAL: Denies acute: fever, diaphoresis, chills, generalized weakness. HEAD: Denies acute: headache, photophobia. Patient has chronic headache unchanged characteristics. Eyes: Denies acute: Double vision, vision loss, eye pain, eye discharge. EARS: Denies acute: tinnitus, hearing loss, ear discharge, ear pain, THROAT: Denies acute: sore throat, swelling, difficulty swallowing , pain with swallowing, change in voice. NECK: Denies acute: neck pain, neck swelling, stiff neck. HEART: Denies acute : chest pain, palpitations, LUNGS: Denies acute: SOB, wheezing, cough, hemoptysis ABDOMEN: Denies acute: abdominal pain, Nausea, Vomiting, diarrhea, melena , hematemesis, hematochezia SKIN: Denies acute: rash, redness, lesions, itchiness. EXTREMITIES: Denies acute: calf pain, weakness, denies pain in extremity. Patient has chronic numbness and tingling in her lower extremities. Unchanged Denies acute: Low back pain. Patient has chronic low back pain. Unchanged. Neuro: Denies acute: focal neurological deficit, motor or sensory focal neurological deficit, tremors, seizure like activity, confusion, dizziness, change in mental status, loss of bowel or bladder function, cauda equina like symptoms. : Denies acute: dysuria, hematuria, flank pain, increase in urinary frequency. PSYCH: Denies acute: hallucination, suicidal ideation, homicidal ideation. FEMALE: Denies acute: abnormal vaginal bleeding, foul odor, unusual discharge. PHYSICAL EXAM: General: ----no----acute distress, awake and alert. Head: normocephalic, atraumatic. Neck: supple, trachea is midline, no swelling. Throat: Normal phonation. Eyes:, no erythema, no purulent discharge, no proptosis, no icterus. Heart: regular rate, regular rhythm, no significant murmur appreciated. Lungs: no apparent respiratory distress, Able to speak in full sentences. No wheezing, no rhonchi, no crackles. No stridors Clear to auscultation bilaterally. Abdomen: non tender to palpation, non distended, soft, no guarding, no rebound, + bowel sounds. Neuro: Awake, Alert, oriented to name, self, situation, follows commands GCS=15. Speech is normal. Skin: no petechia, no purpura, no cyanosis, non-pale, not jaundice. Lower extremities: --no - Pitting edema no deformity, no focal swelling, no calf TTP. Makes eye contact. moves all four extremities. Face: no apparent facial droop. No CVA tenderness to percussion bilaterally. Ambulating in the ED independently. Stroke: finger to nose cerebellar testing is intact. No pronator drift. Symmetrical talent acquisition project manager muscle strength b/l PERRLA, EOM-I CN 2-12 are grossly intact, No nystagmus. No nuchal rigidity, Kernig's sign, Brudzinski's sign, no meningeal signs. ED COURSE: Chief Complaint: Headache Time Seen by MD: 21:58 Primary Care Provider: Reviewed Notes: Nurses Notes, Medications, Allergies Information Source: Patient Mode of Arrival: Ambulatory Was a procedure done? Was a procedure done?: No X-Ray, Labs, Meds, VS Vital Signs Date Time Temp Pulse Resp B/P (MAP) Pulse Ox O2 Delivery O2 Flow Rate FiO2 02/27/25 02:00 93 20 99 Room Air* 0 21 02/27/25 01:58 98.6 93 20 127/73 (91) 99 98.6 02/26/25 21:30 98.9 91 20 128/86 (100) 99 98.9 Lab Test 02/26/25 22:11 02/26/25 22:07 Range/Units White Blood Count 9.2 4.4-10.8 10^3/uL Red Blood Count 5.10 4.0-5.20 10^6/uL Hemoglobin 13.3 12.2-16.2 g/dL Hematocrit 40.4 36.0-46.0 % Mean Corpuscular Volume 79.2 L 80.0-100.0 fL Mean Corpuscular Hemoglobin 26.1 L 28.0-32.0 pg Mean Corpuscular Hemoglobin Concent 32.9 32.0-36.0 g/dL Red Cell Distribution Width 16.7 H 11.8-14.3 % Platelet Count 457 H 140-450 10^3/uL Mean Platelet Volume 7.7 6.9-10.8 fL Neutrophils (%) (Auto) 70.3 37.0-80.0 % Lymphocytes (%) (Auto) 23.7 10.0-50.0 % Monocytes (%) (Auto) 4.7 0.0-12.0 % Eosinophils (%) (Auto) 0.2 0.0-7.0 % Basophils (%) (Auto) 1.1 0.0-2.0 % Neutrophils # (Auto) 6.4 1.6-8.6 10 ^3/uL Lymphocytes # (Auto) 2.2 0.4-5.4 10 ^3/uL Monocytes # (Auto) 0.4 0-1.3 10 ^3/uL Eosinophils # (Auto) 0 0-0.8 10 ^3/uL Basophils # (Auto) 0.1 0-0.2 10 ^3/uL Nucleated Red Blood Cells 0.1 % Sodium Level 139 136-145 mmol/L Potassium Level 3.9 3.5-5.1 mmol/L Chloride Level 105 98-107 mmol/L Carbon Dioxide Level 26 20-31 mmol/L Anion Gap 8 5-15 Blood Urea Nitrogen 11 9-23 mg/dL Creatinine 0.61 0.550-1.02 mg/dL Glomerular Filtration Rate Calc 117 >90 mL/min BUN/Creatinine Ratio 18.0 10.0-20.0 Serum Glucose 97 74-106 mg/dL Lactic Acid Level 1.7 0.4-2.0 mmol/L Calcium Level 10.1 8.7-10.4 mg/dL Magnesium Level 2.0 1.6-2.6 mg/dL Total Bilirubin 0.4 0.2-1.0 mg/dL Aspartate Amino Transferase (AST) 18 13-40 U/L Alanine Aminotransferase (ALT) 17 7-40 U/L Alkaline Phosphatase 92 46-116 U/L Troponin I High Sensitivity < 3 L </=34 ng/L Total Protein 7.6 5.7-8.2 g/dL Albumin 4.8 3.2-4.8 g/dL Urine Color Light-yellow Yellow Urine Clarity Clear Clear Urine pH 6.0 5.0-9.0 Urine Specific [place] 1.021 1.001-1.035 Urine Protein Negative Negative Urine Ketones Negative Negative Urine Blood Negative Negative /uL Urine Nitrite Negative Negative Urine Bilirubin Negative Negative Urine Urobilinogen Normal Negative mg/dL Urine Leukocyte Esterase Negative Negative /uL Urine RBC 1 0 - 4 /hpf Urine Microscopic WBC < 1 0-5 /HPF Urine Squamous Epithelial Cells Few <5 /hpf Urine Bacteria None seen None Seen /hpf Urine Glucose Normal Normal mg/dL Urine Test Negative Negative Urine Opiates Screen Pending Urine Fentanyl Screen Pending Urine Barbiturates Screen Pending Urine Phencyclidine Screen Pending Urine Amphetamines Screen Pending Urine Benzodiazepines Screen Pending Urine Cocaine Screen Pending Urine Cannabinoids Screen Pending Current Medications Medications (Trade) Dose Ordered Sig/Stephanie Route Start Time Stop Time Status Last Admin Acetaminophen/ Hydrocodone Bitart (Tresckow 5/325MG Tab) 1 tab ONCE ONCE PO 02/26/25 23:45 02/26/25 23:52 DC 02/27/25 01:48 Dexamethasone Sodium Phosphate (Decadron Injection) 10 mg ONCE ONCE IV 02/26/25 23:45 02/26/25 23:52 DC 02/27/25 01:48 Ketorolac Tromethamine (Toradol Injection) 30 mg ONCE ONCE IV 02/27/25 00:00 02/27/25 00:01 DC 02/27/25 01:[address] [address] Ph: [phone] DIAGNOSTIC IMAGING Diagnostic Imaging Report : [id number] Signed PATIENT: KELTON EDGECT: [id number] UNIT: [id number] : 1985 LOC: ER ROOM / BED: / AGE / SEX: 39 / F ADM STATUS: REG ER SERVICE 06 ORDERING PHYSICIAN: AMITA VINCENT DO PROCEDURE(s): HWOCT - HEAD WITHOUT CONTRAST REASON: BARNEY ORDER NUMBER(s): [id number], ACCESSION NUMBER(s): [id number] CLINICAL HISTORY: BARNEY TECHNIQUE: Helical imaging carried out from skull base to vertex without intravenous contrast. This exam was performed according to our departmental dose optimization program. Up-to-date CT equipment and radiation dose reduction techniques are utilized as appropriate. CTDIVol: 51.16+ 0.07 mGy DLP: 905.99 mGy-cm WID: COMPARISON: None FINDINGS: The ventricles and subarachnoid spaces are normal in size and configuration. There is no midline shift or mass effect. The elizondo white matter interfaces are maintained. The basal cisterns are patent. There is no evidence of acute intracranial hemorrhage or extra-axial fluid collection. The mastoid air cells and visualized paranasal sinuses are well-aerated aside from mild frothy secretions in the right sphenoid sinus. IMPRESSION: No acute intracranial abnormality. ATED BY: KATELYN BOOKER MD DICTATED DATE/TIME: 02/26/252312 SIGNED BY: KATELYN BOOKER MD SIGNED DATE/TIME: 02/26/252312 CC: [place] [address] Ph: [phone] DIAGNOSTIC IMAGING Diagnostic Imaging Report : [id number] Signed PATIENT: KELTON EDGECT: [id number] UNIT: [id number] : 1985 LOC: ER ROOM / BED: / AGE / SEX: 39 / F ADM STATUS: REG ER SERVICE 06 ORDERING PHYSICIAN: AMITA VINCENT DO PROCEDURE(s): CXRP - CHEST PORTABLE REASON: multiple symptoms ORDER NUMBER(s): [id number], ACCESSION NUMBER(s): [id number] CHEST RADIOGRAPH Indication: multiple symptoms Technique: Single frontal view of the chest was obtained COMPARISON: XY CHEST PORTABLE on DOS: 09/11/24 FINDINGS: Lines and Tubes: None Lungs: Clear. Pleura: No effusion. No pneumothorax. Cardiomediastinal contours: Unremarkable Bones: Unremarkable IMPRESSION: No abnormality. ATED BY: IHSAN BUSTILLOS MD DICTATED DATE/TIME: 02/26/252229 SIGNED BY: IHSAN BUSTILLOS MD SIGNED DATE/TIME: 02/26/252229 CC: Time of 1ST Reevaluation: 22:58 Reevaluation 1ST: Unchanged Time of 2ND Reevaluation: 01:42 Reevaluation 2ND: Improved Patient Education/Counseling: Diagnosis, Treatment Family Education/Counseling: No Family Present Comments Patient was sent here for neurological complaints however on my physical exam she has no neurological deficits. Denies any symptoms of cauda equina. Symptoms are chronic in nature. Departure 1 Departure Time of Disposition: 01:41 Impression: Primary Impression: Headache Additional Impressions: Numbness Chronic back pain Disposition: 01 HOME / SELF CARE / HOMELESS Condition: Stable Additional Instructions: Additional discharge instructions: You MUST follow-up with your primary care/family doctor in 1 to 2 days. If you are unable to see your primary care/family doctor, please return to our emergency room for re-assessment and re-evaluation in 1 to 2 days. Return to the emergency room here in our facility or to the nearest ER [facility] if your symptoms change or worsen. CONSULTATIONS: you MUST Follow-up for consultation as soon as possible with: -spine doctor and Neurology doctor in 1-2 days. Please call for appointment. You MUST call the consultants office yourself to make an appointment. You may need to arrange that through your insurance and/or your primary/family doctor. If you are unable to see the eligibility consultant in 1 to 2 days, you must return to our emergency room (or any other ER of your choice) for re-assessment and re- evaluation. Adequate fluid hydration. You may benefit from an MRI as an outpatient. The please talk to your family doctor. Below is a copy of your radiological report for follow up: [address] - [address] Ph: [phone] DIAGNOSTIC IMAGING Diagnostic Imaging Report : [id number] Signed PATIENT: ONI EDGE ACCT: [id number] UNIT: [id number] : 1985 LOC: ER ROOM / BED: / AGE / SEX: 39 / F ADM STATUS: REG ER SERVICE 06 ORDERING PHYSICIAN: AMITA VINCENT DO PROCEDURE(s): HWOCT - HEAD WITHOUT CONTRAST REASON: BARNEY ORDER NUMBER(s): [id number], ACCESSION NUMBER(s): [id number] CLINICAL HISTORY: BARNEY TECHNIQUE: Helical imaging carried out from skull base to vertex without intravenous contrast. This exam was performed according to our departmental dose optimization program. Up-to-date CT equipment and radiation dose reduction techniques are utilized as appropriate. CTDIVol: 51.16+ 0.07 mGy DLP: 905.99 mGy-cm WID: COMPARISON: None FINDINGS: The ventricles and subarachnoid spaces are normal in size and configuration. There is no midline shift or mass effect. The elizondo white matter interfaces are maintained. The basal cisterns are patent. There is no evidence of acute intracranial hemorrhage or extra-axial fluid collection. The mastoid air cells and visualized paranasal sinuses are well-aerated aside from mild frothy secretions in the right sphenoid sinus. IMPRESSION: No acute intracranial abnormality. ATED BY: KATELYN BOOKER MD DICTATED DATE/TIME: 02/26/252312 SIGNED BY: KATELYN BOOKER MD SIGNED DATE/TIME: 02/26/252312 CC: Discharged With: Self Critical Care Note Critical Care Time?: No I personally scribed for AMITA VINCENT DO ([email or web address]) on 02/26/25 at 22:09. Electronically submitted by Gavin Huerta ([email or web address]). I personally scribed for AMITA VINCENT DO ([email or web address]) on 02/27/25 at 15:50. Electronically submitted by Marivel Sanchez ([email or web address]). AMITA VINCENT DO Feb 26, 2025 22:09
[2025-02-26 22:20] LABS: Urine Bacteria None Seen /hpf (None Seen)
--- NOTE | 2025-02-26 22:32 | DVH ---
CHEST RADIOGRAPH Indication: multiple symptoms Technique: Single frontal view of the chest was obtained COMPARISON: XY CHEST PORTABLE on DOS: 09/11/24 FINDINGS: Lines and Tubes: None Lungs: Clear. Pleura: No effusion. No pneumothorax. Cardiomediastinal contours: Unremarkable Bones: Unremarkable IMPRESSION: No abnormality.
[2025-02-26 22:33] LABS: Basophils # (auto) 0.1 10 ^3/uL (0-0.2); Eosinophils # (auto) 0 10 ^3/uL (0-0.8); Nucleated Red Blood Cells % 0.1 %
[2025-02-26 22:34] LABS: Urine Blood Negative /uL (Negative); Urine Clarity Clear (Clear); Urine Color Light-Yellow (Yellow); Urine Protein, UAD Negative (Negative); Urine Specific Gravity 1.021 (1.001-1.035); Urine Squamous Epithelial Cell FEW /hpf (<5); Urine Urobilinogen Normal (Negative); Urine WBC < 1 /HPF (0-5)
[2025-02-26 22:35] LABS: Basophils % (auto) 1.1 % (0.0-2.0); Eosinophils % (auto) 0.2 % (0.0-7.0); Hematocrit 40.4 % (36.0-46.0); Hemoglobin 13.3 g/dL (12.2-16.2); Lymphocytes # (auto) 2.2 10 ^3/uL (0.4-5.4); Lymphocytes % (auto) 23.7 % (10.0-50.0); Mean Corpuscular Hemoglobin 26.1 pg (28.0-32.0); Mean Corpuscular Hgb Conc. 32.9 g/dL (32.0-36.0); Mean Corpuscular Volume 79.2 fL (80.0-100.0); Monocytes # (auto) 0.4 10 ^3/uL (0-1.3); Monocytes % (auto) 4.7 % (0.0-12.0); Neutrophils # (auto) 6.4 10 ^3/uL (1.6-8.6); Neutrophils % (auto) 70.3 % (37.0-80.0); Platelet Count (auto) 457 10^3/uL (140-450); Red Cell Distribution Width 16.7 % (11.8-14.3); White Blood Cell 9.2 10^3/uL (4.4-10.8)
[2025-02-26 22:50] LABS: Alanine Aminotransferase 17 U/L (7-40); Alkaline Phosphatase 92 U/L (46-116); Anion Gap 8 (5-15); Aspartate Aminotransferase 18 U/L (13-40); Bilirubin, Total 0.4 mg/dL (0.2-1.0); Blood Urea Nitrogen 11 mg/dL (9-23); Calcium 10.1 mg/dL (8.7-10.4); Carbon Dioxide 26 mmol/L (20-31); Chloride 105 mmol/L (98-107); Glucose 97 mg/dL (74-106); Potassium 3.9 mmol/L (3.5-5.1); Sodium 139 mmol/L (136-145); Total Protein 7.6 g/dL (5.7-8.2)
[2025-02-26 22:53] LABS: Albumin 4.8 g/dL (3.2-4.8)
--- NOTE | 2025-02-26 23:16 | DVH ---
CLINICAL HISTORY: BARNEY TECHNIQUE: Helical imaging carried out from skull base to vertex without intravenous contrast. This e xam was performed according to our departmental dose optimization program. Up-to-date CT equipment an d radiation dose reduction techniques are utilized as appropriate. CTDIVol: 51.16+ 0.07 mGy DLP: 905.99 mGy-cm WID: COMPARISON: None FINDINGS: The ventricles and subarachnoid spaces are normal in size and configuration. There is no midline mehnaz ft or mass effect. The elizondo white matter interfaces are maintained. The basal cisterns are patent. Th ere is no evidence of acute intracranial hemorrhage or extra-axial fluid collection. The mastoid air cells and visualized paranasal sinuses are well-aerated aside from mild frothy secretions in the righ t sphenoid sinus. IMPRESSION: No acute intracranial abnormality.
[2025-02-27] MEDS: KETOROLAC TROMETH 30 MG/ML 1ML VIAL IV ONE (01:48)
[2025-02-27] MEDS: HYDROcodone-ACET 5/325MG TAB PO ONE (01:48)
[2025-02-27] MEDS: DexAMETHasone SOD PHOS 10MG/1ML VIAL INJ IV ONE (01:48)
[2025-02-27 01:58] VITALS: BP 127/73; TEMP 98.6
[2025-02-27 02:00] VITALS: PULSE 93; RESP 20; O2SAT 99
[2025-02-27 15:56] LABS: Amphetamine Screen, Urine Pos (NEGATIVE)
[2025-02-27 16:02] LABS: Barbiturate Scree,Urine Neg (NEGATIVE); Benzodiazephine Screen, Urine Neg (NEGATIVE); Cannabinoid Screen, Urine Neg (NEGATIVE); Cocaine Screen, Urine Neg (NEGATIVE); Opiate Scree,Urine Neg (NEGATIVE); Phencyclidine Screen, Urine Neg (NEGATIVE)
== END 2025-02-27 02:58 | disposition home or self-care (01) ==
LOC: ER 20:20
DX: R51.9 Headache, unspecified (principal); R20.0 Anesthesia of skin; M54.50 Low back pain, unspecified; G89.29 Other chronic pain; J45.909 Unspecified asthma, uncomplicated; Z88.8 Allergy status to other drugs, medicaments and biological substances; Z79.899 Other long term (current) drug therapy
CPT/HCPCS: 36415; 70450; 71045; 80053; 80307; 81001; 81025; 83605; 83735; 84484; 85025; 96374; 96375; 99285; J1100; J1885

== ENCOUNTER 2025-07-20 10:00 | Inpatient (IN) | payer OTHER ==
[2025-07-20] VITALS (10 sets, daily range): BP systolic 105–106; BP diastolic 55–56; PULSE 63–116; RESP 18–22; TEMP 98.1–98.9; O2SAT 96–100
[~2025-07-20] VITALS: Ht 149.9 cm; Wt 68.5 kg
--- NOTE | 2025-07-20 10:33 | ED.PDOC ---
History of Present Illness HPI Comments 40F presents to the ER w/ prior MHx of Asthma, Chronic lower back pain and the c/c of asthma. Pt reports on having SOB which started yesterday w/ N/ and used her inhailer/nebulizer at home for which did not work. Pt notes on coughing up phglem. Pt notes on being in the Er Monday for an allergic reaction. Denies chills, fever, N/V/D, CP. Denies any other associated symptom's, modifiers, or recent injuries or sick contact at this time. Chief Complaint: Asthma Time Seen by MD: 10:30 Primary Care Provider: Reviewed Notes: Nurses Notes, Medications, Allergies Allergies: Coded Allergies: [place] Oil (Verified Allergy, Severe, ANAPHYLACTIC SHOCK, 09/13/24) Peanut-containing Drug Products (Verified Allergy, Severe, ANAPHYLACTIC SHOCK, 09/13/24) Avocado (Verified Allergy, Unknown, WHEEZE, HIVES, 09/13/24) Banana (Verified Allergy, Unknown, WHEEZE, HIVES, 09/13/24) Iodine (Verified Allergy, Unknown, 08/25/24) Peanut Oil (Verified Allergy, Unknown, 06/29/16) Uncoded Allergies: ALMOND (Allergy, Mild, WHEEZE, HIVES, 09/13/24) Home Meds Active Scripts Prednisone (Prednisone) 20 Mg Tab, 20 MG PO DAILY for 5 Days, #5 MG Prov:[facility] 09/13/24 Montelukast Sodium (MONTELUKAST SODIUM) 10 Mg Tab, 1 TAB PO DAILY, #30 TAB 5 Refills Prov:[facility] 09/13/24 Hydroxyzine HCl (Hydroxyzine Hydrochloride) 50 Mg Tab, 50 MG PO Q6HP PRN, #30 TAB prn anxiety Prov:ROBERTO HENDRICKS MD 09/08/24 Albuterol Sulfate (VENTOLIN MDI) 90 Mcg Ih, 90 MCG IN Q6HPRN PRN, #1 INH Prov:ROBERTO HENDRICKS MD 09/08/24 Ondansetron (Zofran) 4 Mg Tab, 1 TAB PO Q6HR, #20 TAB Prov:VERONIKA GASCA MD 01/13/23 Pantoprazole Sodium Sesquihydr (Protonix) 40 Mg Tab, 40 MG PO DAILY for 5 Days, #5 TAB Prov:MILI ACOSTA MD 09/09/22 Fluticasone Propionate (FLOVENT HFA 110Mcg INH) 110 Mcg Ih, 2 PUFF INH BID, #1 INHALER 0 Refills Prov:MARU HYLTON MD 06/02/19 Montelukast Sodium (Singulair) 10 Mg Tab, 10 MG PO HS for 30 Days, #30 TAB Prov:MARU HYLTON MD 06/02/19 Information Source: Patient Mode of Arrival: Ambulatory Severity: Moderate Timing: Hours Duration: Since onset, Hours Prehospital treatment: None Past Medical History PAST MEDICAL HISTORY: Asthma Past Medical History (Other): Chronic Back pain Surgical History: Denies all surgeries 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 [employer]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 Hx Family History Family History: Reviewed,noncontributory to illness, Family hx of DM Social History Smoker: Non-Smoker Alcohol: Denies ETOH Use Drugs: Denies Drug Use Lives In: Home Constitutional: denies: chills, diaphoresis, fatigue, fever, malaise, sweats, weakness, others EENTM: denies: blurred vision, double vision, ear bleeding, ear discharge, ear drainage, ear pain, ear ringing, eye pain, eye redness, hearing loss, mouth pain, mouth swelling, nasal discharge, nose bleeding, nose congestion, nose pain, photophobia, tearing, throat pain, throat swelling, voice changes, others Respiratory: reports: cough, shortness of breath, wheezing; denies: hemoptysis, orthopnea, SOB at rest, SOB with excertion, stridor, others Cardiovascular: denies: chest pain, dizzy spells, diaphoresis, Dyspnea on exertion, edema, irregular heart beat, left arm pain, lightheadedness, palpitations, PND, syncope, others Gastrointestinal: denies: abdomen distended, abdominal pain, blood streaked bowels, constipated, diarrhea, dysphagia, difficulty swallowing, hematemesis, melena, nausea, poor appetite, poor fluid intake, rectal bleeding, rectal pain, vomiting, others Genitourinary: denies: abnormal vagina bleeding, burning, dyspareunia, dysuria, flank pain, frequency, hematuria, incontinence, pain, , vagina discharge, urgency, others Neurological: denies: dizziness, fainting, headache, left sided numbness, left sided weakness, numbness, paresthesia, pre-existing deficit, right sided numbness, right sided weakness, seizure, speech problems, tingling, tremors, weakness, others Musculoskeletal: denies: back pain, gout, joint pain, joint swelling, muscle pain, muscle stiffness, neck pain, others Integumetry: denies: bruises, change in color, change in hair/nails, dryness, laceration, lesions, lumps, rash, wounds, others Allergic/Immunocompromised: denies: Difficulty Healing, Frequent Infections, Hives, Itching, others Hematologic/Lymphatic: denies: anemia, blood clots, easy bleeding, easy bruising, swollen glands, others Endocrine: denies: excessive hunger, excessive sweating, excessive thirst, excessive urination, flushing, intolerance to cold, intolerance to heat, unexplained weight gain, unexplained weight loss, others Psychiatric: denies: anxiety, bipolar disorder, depression, hopeless, panic disorder, schizophrenia, sleepless, suicidal, others All Other Systems: Reviewed and Negative Physical Exam General Appearance: Moderate Distress HEENT: Normal ENT Inspection, Pharynx Normal, TMs Normal Neck: Full Range of Motion, Non-Tender, Normal, Normal Inspection Respiratory: Chest Non-Tender, Decreased Breath Sounds, No Accessory Muscle Use, Respiratory Distress, Wheezing Cardiovascular: No Edema, No JVD, No Murmur, No Gallop, Normal Peripheral Pulses, Regular Rate/Rhythm Breast Exam: Deferred Gastrointestinal: No Organomegaly, Non Tender, No Pulsatile Mass, Normal Bowel Sounds, Soft Genitalia: Deferred Pelvic: Deferred Rectal: Deferred Extremities: No calf tenderness, Normal capillary refill, Normal inspection, Normal range of motion, Non-tender, No pedal edema Musculoskeletal : Apperance: Normal Neurologic: Alert, black oxide operator II-XII nml as Tested, No Motor Deficits, Normal Affect, Normal Mood, No Sensory Deficits Cerebellar Function: Normal Reflexes: Normal Skin: Dry, Normal Color, Warm Lymphatic: No Adenopathy Was a procedure done? Was a procedure done?: No Differential Dx Considerations may include: Asthma exacerbation, pneumonia X-Ray, Labs, Meds, VS Vital Signs Date Time Temp Pulse Resp B/P (MAP) Pulse Ox O2 Delivery O2 Flow Rate FiO2 07/20/25 10:35 24 99 Room Air* 0 21 07/20/25 10:12 63 22 97 Room Air* 0 21 07/20/25 10:12 63 22 127/83 (98) 97 07/20/25 10:02 98.0 84 18 134/74 98 98.0 Lab Test 07/20/25 11:08 07/20/25 10:30 Range/Units White Blood Count 17.5 H 4.4-10.8 10^3/uL Red Blood Count 4.96 4.0-5.20 10^6/uL Hemoglobin 12.4 12.2-16.2 g/dL Hematocrit 38.1 36.0-46.0 % Mean Corpuscular Volume 76.7 L 80.0-100.0 fL Mean Corpuscular Hemoglobin 24.9 L 28.0-32.0 pg Mean Corpuscular Hemoglobin Concent 32.5 32.0-36.0 g/dL Red Cell Distribution Width 20.6 H 11.8-14.3 % Platelet Count 488 H 140-450 10^3/uL Mean Platelet Volume 7.9 6.9-10.8 fL Neutrophils (%) (Auto) 65.8 37.0-80.0 % Lymphocytes (%) (Auto) 27.4 10.0-50.0 % Monocytes (%) (Auto) 5.3 0.0-12.0 % Eosinophils (%) (Auto) 0.9 0.0-7.0 % Basophils (%) (Auto) 0.6 0.0-2.0 % Neutrophils # (Auto) 11.5 H 1.6-8.6 10 ^3/uL Lymphocytes # (Auto) 4.8 0.4-5.4 10 ^3/uL Monocytes # (Auto) 0.9 0-1.3 10 ^3/uL Eosinophils # (Auto) 0.1 0-0.8 10 ^3/uL Basophils # (Auto) 0.1 0-0.2 10 ^3/uL Nucleated Red Blood Cells 0.0 % Sodium Level 143 136-145 mmol/L Potassium Level 3.4 L 3.5-5.1 mmol/L Chloride Level 111 H 98-107 mmol/L Carbon Dioxide Level 23 20-31 mmol/L Anion Gap 9 5-15 Blood Urea Nitrogen 14 9-23 mg/dL Creatinine 0.69 0.550-1.02 mg/dL Glomerular Filtration Rate Calc 113 >90 mL/min BUN/Creatinine Ratio 20.3 H 10.0-20.0 Serum Glucose 89 74-106 mg/dL Calcium Level 8.5 L 8.7-10.4 mg/dL Influenza Type A Antigen Negative Negative Influenza Type B Antigen Negative Negative SARS-CoV-2 Antigen (Rapid) Negative NEGATIVE Current Medications Medications (Trade) Dose Ordered Sig/Stephanie Route Start Time Stop Time Status Last Admin Methylprednisolone Sodium Succinate (Solu Medrol) 125 mg ONCE ONCE IV 07/20/25 10:30 07/20/25 10:31 DC 07/20/25 10:59 Ipratropium [place] (Atrovent Medneb) 1 mg ONCE ONCE HHN 07/20/25 10:30 07/20/25 10:31 DC 07/20/25 10:43 Albuterol (Ventolin Medneb) 20 mg ONCE ONCE HHN 07/20/25 10:30 07/20/25 10:31 DC 07/20/25 10:43 Chest x-ray is negative The patient's CBC shows an elevated white blood cell count of 17.5 The chemistry panel is within normal limits The COVID test is negative The influenza a and influenza B are negative The patient was given Solu-Medrol 125 mg IV push The patient was given a continuous breathing treatment of albuterol and Atrovent The patient will be admitted to the hospitalist We are concerned that the patient was discharged and returned with worsening wheezing as well as shortness for breath The patient will be admitted at this time Images Reviewed?: Images reviewed and evaluated by me Time of 1ST Reevaluation: 11:00 Reevaluation 1ST: Unchanged Patient Education/Counseling: Diagnosis, Treatment, Prognosis Family Education/Counseling: No Family Present SEPSIS Sepsis Screen Date sepsis recognized/suspect: Jul 20, 2025 Time Sepsis recognized/suspect: 1004 Recent Procedure: No On Antibiotic Therapy: No Respiratory Rate >20: No Heart Rate >90: No Temp<36 C (96.8 F) or >38.3 C: No SBP <90 or MAP <65 mmHG: No New Acute Mental Status Change: No Is the patient on CPAP, BIPAP,: No Physician Orders Med Neb Initial Treatment (07/20/25 10:19) Heplock Iv (07/20/25 10:19) Pulse Oximetry (07/20/25 10:19) Administrator Health Care Facility (07/20/25 10:19) Blood Pressure (07/20/25 10:19) Chest Two Views Routine (07/20/25 11:55) Vital Signs Date Time Temp Pulse Resp B/P (MAP) Pulse Ox O2 Delivery O2 Flow Rate FiO2 07/20/25 10:35 24 99 Room Air* 0 21 07/20/25 10:12 63 22 97 Room Air* 0 21 07/20/25 10:12 63 22 127/83 (98) 97 07/20/25 10:02 98.0 84 18 134/74 98 98.0 Laboratory Tests Test 07/20/25 11:08 White Blood Count 17.5 10^3/uL (4.4-10.8) H Medications Medications Dose Ordered Sig/Stephanie Route Start Time Stop Time Status Last Admin Dose Admin Albuterol 20 mg ONCE ONCE N 07/20/25 10:30 07/20/25 10:31 DC 07/20/25 10:43 Ipratropium [place] 1 mg ONCE ONCE N 07/20/25 10:30 07/20/25 10:31 DC 07/20/25 10:43 Methylprednisolone Sodium Succinate 125 mg ONCE ONCE IV 07/20/25 10:30 07/20/25 10:31 DC 07/20/25 10:59 Departure 1 Departure Time of Disposition: 13:02 Impression: Primary Impression: Asthma exacerbation Qualified Codes: J45.41 - Moderate persistent asthma with (acute) exacerbation Disposition: 50 HOSPICE/HOME Admit to: Med Surg Condition: Fair Critical Care Note Critical Care Time?: No Stability Stability form required: Yes Unstable for transfer: ED Physician Assesment (Clinical assesment) Heart Score Heart Score: Heart Score Response (Comments) Value History N/A 0 EKG N/A 0 Age N/A 0 Risk Factors N/A 0 Troponin N/A 0 Total 0 I personally scribed for VERONIKA GASCA MD ([email or web address]) on 07/20/25 at 10:33. Electronically submitted by Toni Teran ([email or web address]). VERONIKA GASCA MD Jul 20, 2025 10:33
[2025-07-20] MEDS: ALBUTEROL SULF 2.5 MG/0.5ML(0.5%) NEB SOLN HHN ONE (10:43)
[2025-07-20] MEDS: IPRATROPIUM BROM 0.5 MG/2.5ML INH SOL HHN ONE (10:43)
[2025-07-20] MEDS: methylPREDNISolone SOD SUCC 125 MG/2 ML VL IV ONE (10:59)
[2025-07-20 11:28] LABS: COVID19 ANTIGEN SOFIA FIA NEGATIVE (NEGATIVE)
[2025-07-20 11:35] LABS: Hematocrit 38.1 % (36.0-46.0); Hemoglobin 12.4 g/dL (12.2-16.2)
[2025-07-20 11:39] LABS: Mean Corpuscular Hemoglobin 24.9 pg (28.0-32.0); Mean Corpuscular Volume 76.7 fL (80.0-100.0); Nucleated Red Blood Cells % 0.0 %
[2025-07-20 12:03] LABS: Sodium 143 mmol/L (136-145)
[2025-07-20 12:04] LABS: Anion Gap 9 (5-15); Carbon Dioxide 23 mmol/L (20-31)
[2025-07-20 12:06] LABS: Calcium 8.5 mg/dL (8.7-10.4); Chloride 111 mmol/L (98-107); Potassium 3.4 mmol/L (3.5-5.1)
[2025-07-20 12:10] LABS: BUN/Creatinine Ratio 20.3 (10.0-20.0); Blood Urea Nitrogen 14 mg/dL (9-23); Glucose 89 mg/dL (74-106)
--- NOTE | 2025-07-20 12:55 | DVH ---
EXAM: XY CHEST TWO VIEWS ROUTINE CLINICAL HISTORY: sob TECHNIQUE: Frontal and lateral views of the chest WID: COMPARISON: XY CHEST PORTABLE on DOS: 02/26/25, FINDINGS: Lines and tubes: None Chest: The heart size and pulmonary vasculature is within normal limits. No pleural effusion, pneumothorax, or consolidation. Linear scarring atelectasis in the lateral left lung base. The osseous structures are grossly intact. IMPRESSION: 1. No acute cardiopulmonary abnormality.
[2025-07-20] MEDS ORDERED: MORPHINE SULFATE INJ 2 MG/ml SYRG IV PRN (13:00)
[2025-07-20] MEDS ORDERED: TEMAZEPAM 15 MG CAP PO PRN (13:00)
[2025-07-20] MEDS ORDERED: NITROGLYCERIN 0.4 MG SL TAB SL PRN (13:00)
[2025-07-20] MEDS ORDERED: ONDANSETRON HCL 4 MG/2 ML VIAL IV PRN (13:00)
[2025-07-20] MEDS ORDERED: DOCUSATE SOD 100 MG CAP PO PRN (13:00)
[2025-07-20] MEDS: ALBUTEROL SULF 2.5 MG/0.5ML(0.5%) NEB SOLN NEB SCH (14:00)
[2025-07-20] MEDS: IPRATROPIUM BROM 0.5 MG/2.5ML INH SOL NEB SCH (14:00)
--- NOTE | 2025-07-20 14:23 | DVHHP2 ---
History of Present Illness History of Present Illness Ronni Rizzo is a 40-year-old female with a history of asthma and chronic back pain presenting to the emergency room with shortness of breath and productive cough. The patient reports acute onset shortness of breath that prompted an emergency room visit. She describes using her home inhalers without any relief from her symptoms. The patient also complains of a cough with phlegm buildup. The severity of her symptoms is significant enough to warrant hospital admission for asthma exacerbation. She denies experiencing any chills, fever, nausea, or vomiting. Review of Systems Constitutional: No: Fever, Chills, Sweats, Weakness, Malaise, Other Respiratory: Cough, Dry Cardiovascular: No: Chest Pain, Palpitations, Orthopnea, Paroxysmal Noc. Dyspnea, Edema, Lt Headedness, Other Allergies: Coded Allergies: [place] Oil (Verified Allergy, Severe, ANAPHYLACTIC SHOCK, 09/13/24) Peanut-containing Drug Products (Verified Allergy, Severe, ANAPHYLACTIC SHOCK, 09/13/24) Avocado (Verified Allergy, Unknown, WHEEZE, HIVES, 09/13/24) Banana (Verified Allergy, Unknown, WHEEZE, HIVES, 09/13/24) Iodine (Verified Allergy, Unknown, 08/25/24) Peanut Oil (Verified Allergy, Unknown, 06/29/16) Uncoded Allergies: ALMOND (Allergy, Mild, WHEEZE, HIVES, 09/13/24) Medications Current Medications Medications Dose Ordered Sig/Stephanie Route Start Time Stop Time Status Last Admin Dose Admin Acetaminophen/ Hydrocodone Bitart 1 tab Q4HP PRN PO 07/20/25 13:00 UNV Temazepam 15 mg QHSP PRN PO 07/20/25 13:00 UNV Ondansetron HCl 4 mg Q4HP PRN IV 07/20/25 13:00 UNV Docusate Sodium 100 mg BIDPRN PRN PO 07/20/25 13:00 UNV Enoxaparin Sodium 30 mg DAILY SC 07/21/25 10:00 UNV Acetaminophen 650 mg Q6HP PRN PO 07/20/25 13:00 UNV Nitroglycerin 0.4 mg Q5MINP PRN SL 07/20/25 13:00 UNV Morphine Sulfate 2 mg Q30M PRN IV 07/20/25 13:00 UNV Albuterol 2.5 mg Q4HWA NEB 07/20/25 14:00 UNV Ipratropium [place] 0.5 mg Q4HWA NEB 07/20/25 14:00 UNV Budesonide 0.5 mg BID NEB 07/20/25 22:00 UNV Methylprednisolone Sodium Succinate 60 mg Q8HR IV 07/20/25 14:00 UNV Montelukast Sodium 10 mg HS PO 07/20/25 22:00 UNV Pantoprazole Sodium 40 mg DAILY PO 07/21/25 10:00 UNV Ceftriaxone Sodium 50 ml @ 100 mls/hr DAILY@09 IV 07/21/25 09:00 UNV Exam Vital Signs Vital Signs Date Time Temp Pulse Resp B/P (MAP) Pulse Ox O2 Delivery O2 Flow Rate FiO2 07/20/25 10:35 24 99 Room Air* 0 21 07/20/25 10:12 63 07/20/25 10:12 127/83 (98) 07/20/25 10:02 98.0 98.0 General Appearance: Alert, Oriented X3, Cooperative Respiratory: Other (wheezing in anterior lobes) Cardiovascular: Regular rate, Normal S1, Normal S2, No murmurs Abdominal: Normal bowel sounds, Soft, No tenderness Labs/Xrays Labs Test 07/20/25 11:08 07/20/25 10:30 Range/Units White Blood Count 17.5 H 4.4-10.8 10^3/uL Red Blood Count 4.96 4.0-5.20 10^6/uL Hemoglobin 12.4 12.2-16.2 g/dL Hematocrit 38.1 36.0-46.0 % Mean Corpuscular Volume 76.7 L 80.0-100.0 fL Mean Corpuscular Hemoglobin 24.9 L 28.0-32.0 pg Mean Corpuscular Hemoglobin Concent 32.5 32.0-36.0 g/dL Red Cell Distribution Width 20.6 H 11.8-14.3 % Platelet Count 488 H 140-450 10^3/uL Mean Platelet Volume 7.9 6.9-10.8 fL Neutrophils (%) (Auto) 65.8 37.0-80.0 % Lymphocytes (%) (Auto) 27.4 10.0-50.0 % Monocytes (%) (Auto) 5.3 0.0-12.0 % Eosinophils (%) (Auto) 0.9 0.0-7.0 % Basophils (%) (Auto) 0.6 0.0-2.0 % Neutrophils # (Auto) 11.5 H 1.6-8.6 10 ^3/uL Lymphocytes # (Auto) 4.8 0.4-5.4 10 ^3/uL Monocytes # (Auto) 0.9 0-1.3 10 ^3/uL Eosinophils # (Auto) 0.1 0-0.8 10 ^3/uL Basophils # (Auto) 0.1 0-0.2 10 ^3/uL Nucleated Red Blood Cells 0.0 % Sodium Level 143 136-145 mmol/L Potassium Level 3.4 L 3.5-5.1 mmol/L Chloride Level 111 H 98-107 mmol/L Carbon Dioxide Level 23 20-31 mmol/L Anion Gap 9 5-15 Blood Urea Nitrogen 14 9-23 mg/dL Creatinine 0.69 0.550-1.02 mg/dL Glomerular Filtration Rate Calc 113 >90 mL/min BUN/Creatinine Ratio 20.3 H 10.0-20.0 Serum Glucose 89 74-106 mg/dL Calcium Level 8.5 L 8.7-10.4 mg/dL Influenza Type A Antigen Negative Negative Influenza Type B Antigen Negative Negative SARS-CoV-2 Antigen (Rapid) Negative NEGATIVE SEPSIS Sepsis Screen Date sepsis recognized/suspect: Jul 20, 2025 Time Sepsis recognized/suspect: 1004 Recent Procedure: No On Antibiotic Therapy: No Respiratory Rate >20: No Heart Rate >90: No Temp<36 C (96.8 F) or >38.3 C: No SBP <90 or MAP <65 mmHG: No New Acute Mental Status Change: No Is the patient on CPAP, BIPAP,: No Physician Orders Med Neb Initial Treatment (07/20/25 10:19) Heplock Iv (07/20/25 10:19) Pulse Oximetry (07/20/25 10:19) Pl[employer] Stucco Worker (07/20/25 10:19) Blood Pressure (07/20/25 10:19) Chest Two Views Routine (07/20/25 11:55) Admit (07/20/25 13:00) Allergies (07/20/25 13:00) Code Status (07/20/25 13:00) Hydrocodone-Acet 5/325mg Tab ([place] 5/32 (07/20/25 13:00) Temazepam (Restoril) (07/20/25 13:00) Ondansetron Hcl (Zofran) (07/20/25 13:00) Docusate Sodium Capsule (Colace Capsule) (07/20/25 13:00) Cardiac Diet-2gna,Lofat,Lochol (07/20/25 Lunch) Condition: Fair (07/20/25 13:00) Enoxaparin Sodium (Lovenox) (07/21/25 10:00) Acetaminophen Tablet (Tylenol Tablet) (07/20/25 13:00) Nitroglycerin Sublingual (Ntrostat Subli (07/20/25 13:00) Morphine Sulfate Injection (07/20/25 13:00) Stat Ekg For Chest Pain (07/20/25 13:00) Notify Md Of Changes From Base (07/20/25 13:00) Dental Surgery Doctor For 24 Hours (07/20/25 13:00) Emergency Dysrhythmia Protocol (07/20/25 13:00) Rhythm Strips Once Every Shift (07/20/25 13:00) Oxygen By Nasal Cannula (07/20/25 13:00) Albuterol Medneb (Ventolin Medneb) (07/20/25 14:00) Ipratropium Medneb (Atrovent Medneb) (07/20/25 14:00) Budesonide (Inhalation) (Pulmicort) (07/20/25 22:00) Methylprednisolone Sod Succ (Solu Medrol (07/20/25 14:00) *Consult / (07/20/25 13:03) Montelukast Tablet (Singulair Tablet) (07/20/25 22:00) Pantoprazole Tablet (Protonix Tablet) (07/21/25 10:00) Ceftriaxone 1gm/50ml D5w (Rocephin) (07/21/25 09:00) Potassium Effervesent Tab (Klor-Con/Ef) (07/20/25 14:30) Vital Signs Date Time Temp Pulse Resp B/P (MAP) Pulse Ox O2 Delivery O2 Flow Rate FiO2 07/20/25 10:35 24 99 Room Air* 0 21 07/20/25 10:12 63 22 97 Room Air* 0 21 07/20/25 10:12 63 22 127/83 (98) 97 07/20/25 10:02 98.0 84 18 134/74 98 98.0 Laboratory Tests Test 07/20/25 11:08 White Blood Count 17.5 10^3/uL (4.4-10.8) H Medications Medications Dose Ordered Sig/Stephanie Route Start Time Stop Time Status Last Admin Dose Admin Albuterol 20 mg ONCE ONCE HHN 07/20/25 10:30 07/20/25 10:31 DC 07/20/25 10:43 20 MG Ipratropium [place] 1 mg ONCE ONCE HHN 07/20/25 10:30 07/20/25 10:31 DC 07/20/25 10:43 1 MG Methylprednisolone Sodium Succinate 125 mg ONCE ONCE IV 07/20/25 10:30 07/20/25 10:31 DC 07/20/25 10:59 125 MG Assessment/Plan Assessment/Plan ronni Rizzo is a 40-year-old female with history of asthma and chronic back pain presenting with shortness of breath, cough with phlegm, and asthma exacerbation unresponsive to home inhalers. Asthma Exacerbation Assessment: Patient presents with acute asthma exacerbation, characterized by shortness of breath and cough with phlegm. Home inhalers were ineffective in providing relief. Chest x-ray showed no acute cardiopulmonary abnormality. Leukocytosis of 17.5 is noted, likely secondary to corticosteroid use. The severity of symptoms and lack of response to home treatment necessitates hospital admission for more intensive management. Plan: - Admit to hospital for management of asthma exacerbation - Initiate IV corticosteroids - Start nebulizer treatments - Consult pulmonology - Monitor leukocyte count Hypokalemia Assessment: Patient has hypokalemia with potassium level of 3.4. This electrolyte imbalance requires correction to prevent potential complications. Plan: - Initiate potassium replacement therapy - Monitor serum potassium levels Morbid Obesity Assessment: Patient presents with morbid obesity, which may contribute to respiratory complications and overall health risks. Plan: - Monitor weight and obesity-related health parameters - Provide nutritional counseling Plan discussed with: Patient My Orders Orders - LLUVIA PALACIOS Procedure Category Date Status Time Admit ADMIT 07/20/25 Transmitted 13:00 Allergies BRENNA 07/20/25 In Process 13:00 Code Status CODE 8/31/25 Transmitted 13:00 Hydrocodone-Acet PHA 07/20/25 Logged 5/325mg Tab ([place] 13:00 Temazepam (Restoril) PHA 07/20/25 Logged 13:00 Ondansetron Hcl PHA 07/20/25 Logged (Zofran) 13:00 Docusate Sodium PHA 07/20/25 Logged Capsule (Colace 13:00 Cardiac DIET 07/20/25 Transmitted Diet-2gna,Lofat,Lochol Lunch Condition: Fair [facility] 07/20/25 In Process 13:00 Enoxaparin Sodium PHA 07/21/25 Logged (Lovenox) 10:00 Acetaminophen Tablet PHA 07/20/25 Logged (Tylenol Tablet) 13:00 Nitroglycerin PHA 07/20/25 Logged Sublingual (Ntrostat 13:00 Morphine Sulfate PHA 07/20/25 Logged Injection 13:00 Stat Ekg For Chest [facility] 07/20/25 In Process Pain 13:00 Notify Of Changes [facility] 07/20/25 In Process From Base 13:00 Dental Surgery Doctor For [facility] 07/20/25 In Process 24 Hours 13:00 Emergency Dysrhythmia [facility] 07/20/25 In Process Protocol 13:00 Rhythm Strips Once [facility] 07/20/25 In Process Every Shift 13:00 Oxygen By Nasal RT 07/20/25 Transmitted Cannula 13:00 Albuterol Medneb PHA 07/20/25 Logged (Ventolin Medneb) 14:00 Ipratropium Medneb PHA 07/20/25 Logged (Atrovent Medneb) 14:00 Budesonide PHA 07/20/25 Logged (Inhalation) 22:00 Methylprednisolone PHA 07/20/25 Logged Sod Succ (Solu Medrol 14:00 *Consult CONS 07/20/25 Transmitted / 13:03 Montelukast Tablet PHA 07/20/25 Logged (Singulair Tablet) 22:00 Pantoprazole Tablet PHA 07/21/25 Logged (Protonix Tablet) 10:00 Ceftriaxone 1gm/50ml PHA 07/21/25 Logged D5w (Rocephin) 09:00 Potassium Effervesent PHA 07/20/25 Logged Tab (Klor-Con/Ef) 14:30 Date of Service: Jul 20, 2025 Billing Provider: KARIN NICHOLSON MD Common Visit Codes: [id number] INP/OBS CARE (MOD) LLUVIA PALACIOS RESIDENT SERVICES SUPERVISOR Jul 20, 2025 14:23
[2025-07-20] MEDS: methylPREDNISolone SOD SUCC 125 MG/2 ML VL IV SCH (15:48)
[2025-07-20] MEDS: POTASSIUM EFFERVESENT TAB 25 MEQ PO ONE (15:48)
[2025-07-20] MEDS: ACETAMINOPHEN 325 MG TAB PO PRN (15:52)
[2025-07-20] MEDS: BUDESONIDE (INHALATION) 0.5 MG/2 ML NEB NEB SCH (17:55)
[2025-07-20] MEDS: MONTELUKAST SODIUM 10 MG TAB PO SCH (21:24)
[2025-07-20] MEDS: HYDROcodone-ACET 5/325MG TAB PO PRN (22:31)
--- NOTE | 2025-07-20 23:35 | DVHINCON2 ---
Date of service: Jul 20, 2025 Referring Physician GABRIELE Nieto Reason for Consultation Asthma exacerbation History of Present Illness A 40-year-old woman with past medical history of asthma and chronic back pain presenting to the emergency room today with c/o shortness of breath and pro ductive cough. The patient reports acute onset shortness of breath that prompted ED visit. She describes using her home inhalers without any relief from her symptoms. Patient also complains of a cough with phlegm buildup. Patient denies experiencing any chills, fever, nausea, or vomiting. Patient was diagnosed with asthma exacerbation and admitted for further care. Pulmonary consultation is requested for evaluation and management due to the above findings. Review of Systems: 14-point review of systems negative unless otherwise noted above. Past Medical History: Asthma Past Surgical History: None Medications: Reviewed. Allergies: [place] Oil Peanut-containing Drug Products Avocado Banana Iodine Peanut Oil [place] Family History: Diabetes mellitus Social History: Nonsmoker. No alcohol or illicit drug use. Family History: Diabetes mellitus G8 FATHER Allergies: Coded Allergies: [place] Oil (Verified Allergy, Severe, ANAPHYLACTIC SHOCK, 09/13/24) Peanut-containing Drug Products (Verified Allergy, Severe, ANAPHYLACTIC SHOCK, 09/13/24) Avocado (Verified Allergy, Unknown, WHEEZE, HIVES, 09/13/24) Banana (Verified Allergy, Unknown, WHEEZE, HIVES, 09/13/24) Iodine (Verified Allergy, Unknown, 08/25/24) Peanut Oil (Verified Allergy, Unknown, 06/29/16) Uncoded Allergies: ALMOND (Allergy, Mild, WHEEZE, HIVES, 09/13/24) Home Meds Active Scripts Prednisone (Prednisone) 20 Mg Tab, 20 MG PO BID for 5 Days, #10 MG Prov:CASSANDRA EMERSON NP 07/21/25 Epinephrine (Anaphylaxis) (Auvi-Q) 0.1 Mg/0.1 Ml Inj, 0.1 MG IJ O PRN for 1 Day, #1 INJ Prov:CASSANDRA EMERSON NP 07/21/25 Prednisone (Prednisone) 20 Mg Tab, 20 MG PO DAILY for 5 Days, #5 MG Prov:LLUVIA PALACIOS 09/13/24 Montelukast Sodium (MONTELUKAST SODIUM) 10 Mg Tab, 1 TAB PO DAILY, #30 TAB 5 Refills Prov:RONNIELLUVIA UP SW[employer] OPERATORS SUPERVISOR 09/13/24 Hydroxyzine HCl (Hydroxyzine Hydrochloride) 50 Mg Tab, 50 MG PO Q6HP PRN, #30 TAB prn anxiety Prov:ROBERTO HENDRICKS MD 09/08/24 Albuterol Sulfate (VENTOLIN MDI) 90 Mcg Ih, 90 MCG IN Q6HPRN PRN, #1 INH Prov:ROBERTO HENDRICKS MD 09/08/24 Ondansetron (Zofran) 4 Mg Tab, 1 TAB PO Q6HR, #20 TAB Prov:VERONIKA GASCA MD 01/13/23 Pantoprazole Sodium Sesquihydr (Protonix) 40 Mg Tab, 40 MG PO DAILY for 5 Days, #5 TAB Prov:MILI ACOSTA MD 09/09/22 Fluticasone Propionate (FLOVENT HFA 110Mcg INH) 110 Mcg Ih, 2 PUFF INH BID, #1 INHALER 0 Refills Prov:MARU HYLTON MD 06/02/19 Montelukast Sodium (Singulair) 10 Mg Tab, 10 MG PO HS for 30 Days, #30 TAB Prov:MARU HYLTON MD 06/02/19 Current Medications Current Medications Medications (Trade) Dose Ordered Sig/Stephanie Route PRN Reason Start Time Stop Time Status Last Admin Acetaminophen/ Hydrocodone Bitart ([place] 5/325MG Tab) 1 tab Q4HP PRN PO MODERATE PAIN (4-6 PAIN SCALE) 07/20/25 13:00 07/20/25 22:31 Temazepam (Restoril) 15 mg QHSP PRN PO FOR INSOMNIA 07/20/25 13:00 Ondansetron HCl (Zofran) 4 mg Q4HP PRN IV NAUSEA / VOMITING 07/20/25 13:00 Docusate Sodium (Colace Capsule) 100 mg BIDPRN PRN PO FOR CONSTIPATION 07/20/25 13:00 Enoxaparin Sodium (Lovenox) 30 mg DAILY SC 07/21/25 10:00 Future Hold Acetaminophen (Tylenol Tablet) 650 mg Q6HP PRN PO PAIN SCALE 1-3 OR TEMP>100.4 07/20/25 13:00 07/20/25 19:55 Nitroglycerin (Ntrostat Sublingual) 0.4 mg Q5MINP PRN SL FOR CHEST PAIN 07/20/25 13:00 Morphine Sulfate 2 mg Q30M PRN IV FOR CHEST PAIN 07/20/25 13:00 Albuterol (Ventolin Medneb) 2.5 mg Q4HWA NEB 07/20/25 14:00 07/20/25 21:46 Ipratropium [place] (Atrovent Medneb) 0.5 mg Q4HWA NEB 07/20/25 14:00 07/20/25 21:46 Budesonide (Pulmicort) 0.5 mg BID NEB 07/20/25 22:00 07/20/25 17:55 Methylprednisolone Sodium Succinate (Solu Medrol) 60 mg Q8HR IV 07/20/25 14:00 07/20/25 21:24 Montelukast Sodium (Singulair Tablet) 10 mg HS PO 07/20/25 22:00 07/20/25 21:24 Pantoprazole Sodium (Protonix Tablet) 40 mg DAILY PO 07/21/25 10:00 Ceftriaxone Sodium 50 ml @ 100 mls/hr DAILY@09 IV 07/21/25 09:00 Vital Signs Vital Signs Date Time Temp Pulse Resp B/P (MAP) Pulse Ox O2 Delivery O2 Flow Rate FiO2 07/20/25 21:47 107 20 97 07/20/25 17:58 Room Air 0.0 07/20/25 17:58 21 07/20/25 15:35 98.9 105/56 98.9 Physical Exam Gen.: Patient lying in bed in no apparent distress. Breathing on room air. Head: Normocephalic, atraumatic. Eyes: EOMI/PERRLA. Ears: Normal hearing. Normal anatomy. Neck/trachea: Trachea midline, supple. Nose: Normal external anatomy. Mouth: Moist mucous membranes. Chest: Decreased air entry bilaterally. No wheezing or rhonchi. Cardiovascular: Positive S1, positive S2. Regular rate and rhythm. Abdomen: Positive bowel sounds in all 4 quadrants. Soft, non-tender, non- distended. : Deferred. Rectal: Deferred. Skin: Warm, dry. Intact. Extremities: 2+ radial pulses bilaterally. No lower extremity edema. Neuro: Awake, alert, oriented x3. No gross motor or sensory deficits. Cranial nerves II through XII intact. Gait not assessed. Labs/Diagnostic Data Labs Test 07/20/25 11:08 07/20/25 10:30 Range/Units White Blood Count 17.5 H 4.4-10.8 10^3/uL Red Blood Count 4.96 4.0-5.20 10^6/uL Hemoglobin 12.4 12.2-16.2 g/dL Hematocrit 38.1 36.0-46.0 % Mean Corpuscular Volume 76.7 L 80.0-100.0 fL Mean Corpuscular Hemoglobin 24.9 L 28.0-32.0 pg Mean Corpuscular Hemoglobin Concent 32.5 32.0-36.0 g/dL Red Cell Distribution Width 20.6 H 11.8-14.3 % Platelet Count 488 H 140-450 10^3/uL Mean Platelet Volume 7.9 6.9-10.8 fL Neutrophils (%) (Auto) 65.8 37.0-80.0 % Lymphocytes (%) (Auto) 27.4 10.0-50.0 % Monocytes (%) (Auto) 5.3 0.0-12.0 % Eosinophils (%) (Auto) 0.9 0.0-7.0 % Basophils (%) (Auto) 0.6 0.0-2.0 % Neutrophils # (Auto) 11.5 H 1.6-8.6 10 ^3/uL Lymphocytes # (Auto) 4.8 0.4-5.4 10 ^3/uL Monocytes # (Auto) 0.9 0-1.3 10 ^3/uL Eosinophils # (Auto) 0.1 0-0.8 10 ^3/uL Basophils # (Auto) 0.1 0-0.2 10 ^3/uL Nucleated Red Blood Cells 0.0 % Sodium Level 143 136-145 mmol/L Potassium Level 3.4 L 3.5-5.1 mmol/L Chloride Level 111 H 98-107 mmol/L Carbon Dioxide Level 23 20-31 mmol/L Anion Gap 9 5-15 Blood Urea Nitrogen 14 9-23 mg/dL Creatinine 0.69 0.550-1.02 mg/dL Glomerular Filtration Rate Calc 113 >90 mL/min BUN/Creatinine Ratio 20.3 H 10.0-20.0 Serum Glucose 89 74-106 mg/dL Calcium Level 8.5 L 8.7-10.4 mg/dL Influenza Type A Antigen Negative Negative Influenza Type B Antigen Negative Negative SARS-CoV-2 Antigen (Rapid) Negative NEGATIVE Assessment Impression: Acute exacerbation of Asthma Obesity BMI 30.5 Leucocytosis Hypokalemia Seasonal allergies Plan: On room air IV steroids Bronchodilators Pulmicort Montelukast Monitor renal function Monitor electrolytes. Supplement as necessary. Diet and lifestyle modifications for weight reduction. Obesity complicates all care. DVT prophylaxis-Lovenox GI prophylaxis-Protonix Prognosis: Guarded given patient's multiple co-morbidities. Rest of plan per hospitalist and other consultants. Thank you, GABRIELE Nieto, for allowing me to participate in this patient's care. Further recommendations will depend on the patient's clinical course. Please do not hesitate to contact me if you have any questions or concerns. This medical document was created using an electronic medical record system with [employer] dictation system. Although these documentations are being carefully reviewed, there may still be some phonetic and typographical changes. The errors are purely typographical, due to imperfection on the software program, and do not reflect any compromise in the patient's medical care. Plan discussed with: Patient, Other (RN/MD) HAL MEJIA MD Jul 20, 2025 23:35
[2025-07-21] VITALS (9 sets, daily range): BP systolic 103–131; BP diastolic 56–83; PULSE 84–109; RESP 18–20; TEMP 36.2; O2SAT 95–100
[2025-07-21] MEDS: KETOROLAC TROMETH 30 MG/ML 1ML VIAL IV ONE (09:45)
[2025-07-21] MEDS: PANTOPRAZOLE 40 MG TAB PO SCH (09:46)
[2025-07-21] MEDS ORDERED: ENOXAPARIN SOD 30 MG/0.3 ML SYRINGE SC SCH (10:00)
--- NOTE | 2025-07-21 12:06 | DVHDS2 ---
Discharge Summary Date of Admission Jul 20, 2025 at 13:00 Date of Discharge: Jul 21, 2025 Labs/Diagnostic Data: Laboratory Results Test 07/20/25 11:08 07/20/25 10:30 White Blood Count 17.5 10^3/uL (4.4-10.8) Red Blood Count 4.96 10^6/uL (4.0-5.20) Hemoglobin 12.4 g/dL (12.2-16.2) Hematocrit 38.1 % (36.0-46.0) Mean Corpuscular Volume 76.7 fL (80.0-100.0) Mean Corpuscular Hemoglobin 24.9 pg (28.0-32.0) Mean Corpuscular Hemoglobin Concent 32.5 g/dL (32.0-36.0) Red Cell Distribution Width 20.6 % (11.8-14.3) Platelet Count 488 10^3/uL (140-450) Mean Platelet Volume 7.9 fL (6.9-10.8) Neutrophils (%) (Auto) 65.8 % (37.0-80.0) Lymphocytes (%) (Auto) 27.4 % (10.0-50.0) Monocytes (%) (Auto) 5.3 % (0.0-12.0) Eosinophils (%) (Auto) 0.9 % (0.0-7.0) Basophils (%) (Auto) 0.6 % (0.0-2.0) Neutrophils # (Auto) 11.5 10 ^3/uL (1.6-8.6) Lymphocytes # (Auto) 4.8 10 ^3/uL (0.4-5.4) Monocytes # (Auto) 0.9 10 ^3/uL (0-1.3) Eosinophils # (Auto) 0.1 10 ^3/uL (0-0.8) Basophils # (Auto) 0.1 10 ^3/uL (0-0.2) Nucleated Red Blood Cells 0.0 % Sodium Level 143 mmol/L (136-145) Potassium Level 3.4 mmol/L (3.5-5.1) Chloride Level 111 mmol/L (98-107) Carbon Dioxide Level 23 mmol/L (20-31) Anion Gap 9 (5-15) Blood Urea Nitrogen 14 mg/dL (9-23) Creatinine 0.69 mg/dL (0.550-1.02) Glomerular Filtration Rate Calc 113 mL/min (>90) BUN/Creatinine Ratio 20.3 (10.0-20.0) Serum Glucose 89 mg/dL (74-106) Calcium Level 8.5 mg/dL (8.7-10.4) Influenza Type A Antigen Negative (Negative) Influenza Type B Antigen Negative (Negative) SARS-CoV-2 Antigen (Rapid) Negative (NEGATIVE) Other Laboratory Tests 07/20/25 11:08 Brief Hx & Hospital Course: Ariane Rizzo is a 40-year-old female with a history of asthma and chronic back pain presenting to the emergency room with shortness of breath and productive cough. The patient reports acute onset shortness of breath that prompted an emergency room visit. She describes using her home inhalers without any relief from her symptoms. The patient also complains of a cough with phlegm buildup. The severity of her symptoms is significant enough to warrant hospital admission for asthma exacerbation. She denies experiencing any chills, fever, nausea, or vomiting. Patient was admitted on 07/20/25 for allergic reaction impeding her airway. Patient received EpiPen as well as high-dose steroid. WBC was 17.5. Patient states she is on Claritin and montelukast daily. Patient states she sees outpatient nut feeder. Patient was sent antibiotics at home as well as steroids. Patient also given EpiPen and inhaler to use as needed. Patient instructed to follow-up with her PCP in 1 week. There were no complaints or new complaints upon discharge, all questions and concerns were answered. Patient was advised to return to the ER or call 911 if any headaches, dizziness, shortness of breath, chest pain, bleeding, fevers, or worsening of medical condition. Patient/Family was counseled about treatment plan, medications, possible side effects, patient verbalized understanding. All questions were answered to the best of my ability. The patient symptoms improved and they are okay to be DC. Condition at Discharge: Stable Final Diagnosis/Problems List Asthma excerbation Discharge Disposition: Home Discharge Instruct/Medications Diet: Regular Activity: No Restrictions, As Tolerated Follow Up/Referral: pcp 1 week Scheduled Azithromycin (Azithromycin), 250 MG PO DAILY Fluticasone Propionate (FLOVENT HFA 110Mcg INH), 2 PUFF INH BID Montelukast Sodium (Singulair), 10 MG PO HS Montelukast Sodium (Montelukast Sodium), 1 TAB PO DAILY Ondansetron (Zofran), 1 TAB PO Q6HR Pantoprazole Sodium Sesquihydr (Protonix), 40 MG PO DAILY Prednisone (Prednisone), 20 MG PO BID Scheduled PRN Albuterol Sulfate (Ventolin Mdi), 90 MCG IN Q6HPRN PRN Albuterol Sulfate (Albuterol Sulfate Hfa), 108 MCG IN Q4HP PRN Epinephrine (Anaphylaxis) (Auvi-Q), 0.1 MG IJ O PRN Hydroxyzine HCl (Hydroxyzine Hydrochloride), 50 MG PO Q6HP PRN Discontinued Medications Prednisone (Prednisone), 20 MG PO DAILY Discharge Statement: "Patient was advised to return to the ER or call 911 if any headaches, dizziness, shortness of breath, chest pain, abdominal pain, bleeding, fevers, or worsening of medical condition. Patient was counseled about treatment plan, medications, possible side effects, patientverbalized understanding. All questions were answered to the best of my ability. This discharge took greater then 30 minutes in planning, reviewing documentation, counseling the patient, and discussing with other team members." ASSESSMENT ASSESSMENT Assessment Asthma excerbation CASSANDRA EMERSON NP Jul 21, 2025 12:06
[2025-07-21] MEDS ORDERED: PRED20TA2 PO (12:09)
[2025-07-21] MEDS ORDERED: EPIN0.1I11 IJ (12:09)
[2025-07-21] MEDS ORDERED: AZIT-43 PO (15:09)
[2025-07-21] MEDS ORDERED: ALBU108A5 IN (15:21)
[2025-07-21] MEDS ORDERED: predniSONE 20 MG TAB PO SCH (22:00)
--- NOTE | 2025-07-21 23:00 | DVHPN2 ---
Progress Note - Dictate Date Seen: Jul 21, 2025 Medical Necessity Reason Pt with a Central, PICC or Fol: No Subjective Patient seen and examined at bedside. Breathing comfortably on room air. Overnight events reviewed. vital signs Vital Sign Date Time Temp Pulse Resp B/P (MAP) Pulse Ox O2 Delivery O2 Flow Rate FiO2 07/21/25 15:04 84 18 100 07/21/25 14:58 Room Air* 0 21 07/21/25 13:00 98.9 105/63 (77) 98.9 Total Intake and Output 07/20/25 07/20/25 07/21/25 15:00 23:00 07:00 Intake Total 1440 ml 480 ml Balance 1440 ml 480 ml objective Gen.: Patient lying in bed in no apparent distress. Breathing on room air. Head: Normocephalic, atraumatic. Eyes: EOMI/PERRLA. Ears: Normal hearing. Normal anatomy. Neck/trachea: Trachea midline, supple. Nose: Normal external anatomy. Mouth: Moist mucous membranes. Chest: Decreased air entry bilaterally. No wheezing or rhonchi. Cardiovascular: Positive S1, positive S2. Regular rate and rhythm. Abdomen: Positive bowel sounds in all 4 quadrants. Soft, non-tender, non- distended. : Deferred. Rectal: Deferred. Skin: Warm, dry. Intact. Extremities: 2+ radial pulses bilaterally. No lower extremity edema. Neuro: Awake, alert, oriented x3. No gross motor or sensory deficits. Cranial nerves II through XII intact. Gait not assessed laboratory and microbiology Laboratory Tests 07/20/25 11:08 Test 07/20/25 11:08 Range/Units Serum Glucose 89 74-106 mg/dL Assessment/Plan Impression: Acute exacerbation of Asthma Obesity BMI 30.5 Leucocytosis Hypokalemia Seasonal allergies Events: Breathing on room air Supplemental oxygen PRN Continue bronchodilators Pulmicort BID On montelukast Continue IV steroids Continue antibiotics Protonix for GI ppx Lovenox for DVT ppx Patient is stable from the pulmonary standpoint for discharge Labs and imaging reviewed. Rest of plan as noted below. Plan: On room air Supplemental oxygen PRN Titrate to keep sats above 92% IV steroids Bronchodilators Pulmicort Montelukast Monitor renal function Monitor electrolytes. Supplement as necessary. Diet and lifestyle modifications for weight reduction. Obesity complicates all care. DVT prophylaxis-Lovenox GI prophylaxis-Protonix Prognosis: Guarded given patient's multiple co-morbidities. Rest of plan per hospitalist and other consultants. Thank you, GABRIELE Nieto, for allowing me to participate in this patient's care. Further recommendations will depend on the patient's clinical course. Please do not hesitate to contact me if you have any questions or concerns. This medical document was created using an electronic medical record system with [id number] dictation system. Although these documentations are being carefully reviewed, there may still be some phonetic and typographical changes. The errors are purely typographical, due to imperfection on the software program, and do not reflect any compromise in the patient's medical care. Plan discussed with: Patient, Other (RAMAN Pierson) AHL MEJIA MD Jul 21, 2025 23:00
== END 2025-07-21 16:00 | disposition home or self-care (01) | DRG 141 ==
LOC: ER 10:00 → OVERFLOW 13:00 → TELE-WESTW 07-21 02:27
PROVIDERS: ADMIT Nurse Practitioner Family; ATTEND Nurse Practitioner Family
DX: J45.901 Unspecified asthma with (acute) exacerbation (principal); R65.10 Systemic inflammatory response syndrome (SIRS) of non-infectious origin without acute organ dysfunction; D72.829 Elevated white blood cell count, unspecified; E66.01 Morbid (severe) obesity due to excess calories; E87.6 Hypokalemia; Z20.822 Contact with and (suspected) exposure to COVID-19; G89.29 Other chronic pain; Z68.30 Body mass index [BMI] 30.0-30.9, adult; Z91.041 Radiographic dye allergy status; Z91.010 Allergy to peanuts; Z91.018 Allergy to other foods; Z83.3 Family history of diabetes mellitus
CPT/HCPCS: 36415; 71046; 80048; 85025; 87426; 87804; 94640; 94644; 96374; G0378; J1885

== ENCOUNTER 2025-11-17 21:00 | Emergency (ER) | payer OTHER ==
[~2025-11-17] VITALS: Ht 149.9 cm; Wt 64.1 kg
[~2025-11-17 21:00] MED LIST changes: +ALBU108A5 IN; +AZIT-43 PO; +EPIN0.1I11 IJ
--- NOTE | 2025-11-17 22:07 | DVH ---
CHEST RADIOGRAPH INDICATION: SOB TECHNIQUE: Single frontal view of the chest was obtained COMPARISON: XY CHEST TWO VIEWS ROUTINE on DOS: 07/20/25 FINDINGS: Lines and Tubes: None. Lungs: Clear. Pleura: No pleural effusion or pneumothorax Cardiomediastinal contours: Unremarkable. IMPRESSION: No abnormality demonstrated.
[2025-11-17] MEDS: ALBUTEROL SULF 2.5 MG/0.5ML(0.5%) NEB SOLN NEB ONE (22:26)
[2025-11-17] MEDS: IPRATROPIUM BROM 0.5 MG/2.5ML INH SOL NEB ONE (22:26)
[2025-11-17] MEDS ORDERED: ALBU0.084 NEB (23:16)
[2025-11-17] MEDS ORDERED: PRED20TA2 PO (23:16)
[2025-11-17] MEDS ORDERED: ALBU108A5 IN (23:16)
--- NOTE | 2025-11-17 23:27 | ED.PDOC ---
History of Present Illness HPI Comments 40 y/o F presents with c/c of shortness of breath. History for asthma. Patient reports onset of dyspnea, this evening, unprovoked. No relief with at-home albuterol inhaler. Denial of any fever, cough, congestion, chest pain, or further acute symptoms. Chief Complaint: Shortness of Breath Time Seen by MD: 21:45 Primary Care Provider: Reviewed Notes: Nurses Notes, Medications, Allergies Allergies: Coded Allergies: [place] Oil (Verified Allergy, Severe, ANAPHYLACTIC SHOCK, 09/13/24) Peanut-containing Drug Products (Verified Allergy, Severe, ANAPHYLACTIC SHOCK, 09/13/24) Avocado (Verified Allergy, Unknown, WHEEZE, HIVES, 09/13/24) Banana (Verified Allergy, Unknown, WHEEZE, HIVES, 09/13/24) Iodine (Verified Allergy, Unknown, 08/25/24) Peanut Oil (Verified Allergy, Unknown, 06/29/16) Uncoded Allergies: ALMOND (Allergy, Mild, WHEEZE, HIVES, 09/13/24) Home Meds Active Scripts Prednisone (Prednisone) 20 Mg Tab, 20 MG PO BID for 5 Days, #10 TAB Prov:RAI JESUS MD 11/17/25 Albuterol Sulfate (Albuterol Sulfate Hfa) 108 Mcg/Act Aer, 108 MCG IN Q6HP PRN, #1 AER 3 Refills Prov:RAI JESUS MD 11/17/25 Albuterol Sulfate (Albuterol Sulfate) 0.083 % Neb, 1 VIAL NEB Q4HPRN PRN, #50 VIAL Prov:RAI JESUS MD 11/17/25 Albuterol Sulfate (Albuterol Sulfate Hfa) 108 Mcg/Act Aer, 108 MCG IN Q4HP PRN for 30 Days, #1 AER 2 puffs for inhalation every 4 hrs as needed for shortness of breath Prov:CASSANDRA EMERSON NP 07/21/25 Azithromycin (Azithromycin) 250 Mg Tab, 250 MG PO DAILY MDD 500 for 5 Days, #6 TAB 0 Refills 2 TABLETS ORALLY ON DAY ONE, THEN 1 TABLET ORALLY DAILY FOR 4 DAYS Prov:CASSANDRA EMERSON NP 07/21/25 Prednisone (Prednisone) 20 Mg Tab, 20 MG PO BID for 5 Days, #10 MG Prov:CASSANDRA EMERSON ACUTE CARE REGISTERED NURSE 07/21/25 Epinephrine (Anaphylaxis) (Auvi-Q) 0.1 Mg/0.1 Ml Inj, 0.1 MG IJ O PRN for 1 Day, #1 INJ Prov:CASSANDRA EMERSON ACUTE CARE REGISTERED NURSE 07/21/25 Montelukast Sodium (MONTELUKAST SODIUM) 10 Mg Tab, 1 TAB PO DAILY, #30 TAB 5 Refills Prov:LLUVIA PALACIOS TIRE CENTER MANAGER 09/13/24 Hydroxyzine HCl (Hydroxyzine Hydrochloride) 50 Mg Tab, 50 MG PO Q6HP PRN, #30 TAB prn anxiety Prov:ROBERTO HENDRICKS MD 09/08/24 Albuterol Sulfate (VENTOLIN MDI) 90 Mcg Ih, 90 MCG IN Q6HPRN PRN, #1 INH Prov:ROBERTO HENDRICKS MD 09/08/24 Ondansetron (Zofran) 4 Mg Tab, 1 TAB PO Q6HR, #20 TAB Prov:VERONIKA GASCA MD 01/13/23 Pantoprazole Sodium Sesquihydr (Protonix) 40 Mg Tab, 40 MG PO DAILY for 5 Days, #5 TAB Prov:MILI ACOSTA MD 09/09/22 Fluticasone Propionate (FLOVENT HFA 110Mcg INH) 110 Mcg Ih, 2 PUFF INH BID, #1 INHALER 0 Refills Prov:MARU HYLTON MD 06/02/19 Montelukast Sodium (Singulair) 10 Mg Tab, 10 MG PO HS for 30 Days, #30 TAB Prov:MARU HYLTON MD 06/02/19 Information Source: Patient Mode of Arrival: Ambulatory Severity: Moderate Timing: Hours Duration: Since onset Prehospital treatment: None Past Medical History PAST MEDICAL HISTORY: Asthma Surgical History: Denies all surgeries SENIOR EXECUTIVE ASSISTANT History: Denies all SENIOR EXECUTIVE ASSISTANT Hx Family History Family History: Reviewed,noncontributory to illness, Family hx of DM Social History Smoker: Non-Smoker Alcohol: Denies ETOH Use Drugs: Denies Drug Use Lives In: Home All Other Systems: Reviewed and Negative (As per HPI) Physical Exam General Appearance: No Apparent Distress, Normal HEENT: Normal ENT Inspection, Pharynx Normal, TMs Normal Neck: Full Range of Motion, Non-Tender, Normal, Normal Inspection Respiratory: Chest Non-Tender, No Accessory Muscle Use, No Respiratory Distress, Wheezing (mild, scattered wheezes, bilaterally ) Cardiovascular: No Edema, No JVD, No Murmur, No Gallop, Normal Peripheral Pulses, Regular Rate/Rhythm Breast Exam: Deferred Gastrointestinal: No Organomegaly, Non Tender, No Pulsatile Mass, Normal Bowel Sounds, Soft Genitalia: Deferred Pelvic: Deferred Rectal: Deferred Extremities: No calf tenderness, Normal capillary refill, Normal inspection, Normal range of motion, Non-tender, No pedal edema Musculoskeletal : Apperance: Normal Neurologic: Alert, product support rep II-XII nml as Tested, No Motor Deficits, Normal Affect, Normal Mood, No Sensory Deficits Cerebellar Function: Normal Reflexes: Normal Skin: Dry, Normal Color, Warm Lymphatic: No Adenopathy Was a procedure done? Was a procedure done?: No Differential Dx Considerations may include: acute asthma exacerbation, URI, PNA, viral syndrome, CO, PE, ACS, among others X-Ray, Labs, Meds, VS Vital Signs Date Time Temp Pulse Resp B/P (MAP) Pulse Ox O2 Delivery O2 Flow Rate FiO2 11/17/25 23:54 Room Air* 0 21 11/17/25 23:54 98.7 96 18 121/79 (93) 98 98.7 11/17/25 23:00 99.3 101 22 133/71 (91) 98 99.3 11/17/25 21:03 97.5 109 24 117/86 97 97.5 Current Medications Medications (Trade) Dose Ordered Sig/Stephanie Route Start Time Stop Time Status Last Admin Albuterol (Ventolin Medneb) 5 mg ONCE ONCE NEB 11/17/25 22:00 11/17/25 22:01 DC 11/17/25 22:26 Ipratropium [place] (Atrovent Medneb) 0.5 mg ONCE ONCE NEB 11/17/25 22:00 11/17/25 22:01 DC 11/17/25 22:26 Prednisone 40 mg ONCE ONCE PO 11/17/25 22:00 11/17/25 22:01 DC 11/17/25 23:[address] [address] Ph: [phone] DIAGNOSTIC IMAGING Diagnostic Imaging Report : [id number] Signed PATIENT: ONI EDGE ACCT: [id number] UNIT: [id number] : 1985 LOC: ER ROOM / BED: / AGE / SEX: 40 / F ADM STATUS: REG ER SERVICE 47 ORDERING PHYSICIAN: RAI JESUS MD PROCEDURE(s): CXR1 - CHEST XRAY 1 VIEW REASON: SOB ORDER NUMBER(s): [id number], ACCESSION NUMBER(s): [id number] CHEST RADIOGRAPH INDICATION: SOB TECHNIQUE: Single frontal view of the chest was obtained COMPARISON: XY CHEST TWO VIEWS ROUTINE on DOS: 07/20/25 FINDINGS: Lines and Tubes: None. Lungs: Clear. Pleura: No pleural effusion or pneumothorax Cardiomediastinal contours: Unremarkable. IMPRESSION: No abnormality demonstrated. ATED BY: IHSAN BUSTILLOS MD DICTATED DATE/TIME: 11/17/252204 SIGNED BY: IHSAN BUSTILLOS MD SIGNED DATE/TIME: 11/17/252204 CC: Time of 1ST Reevaluation: 22:30 Reevaluation 1ST: Unchanged Patient Education/Counseling: Diagnosis, Treatment, Need For Follow Up Family Education/Counseling: No Family Present SEPSIS Sepsis Screen Date sepsis recognized/suspect: Nov 17, 2025 Time Sepsis recognized/suspect: 2103 Recent Procedure: No On Antibiotic Therapy: No Respiratory Rate >20: Yes Heart Rate >90: Yes Temp<36 C (96.8 F) or >38.3 C: No SBP <90 or MAP <65 mmHG: No New Acute Mental Status Change: No Is the patient on CPAP, BIPAP,: No Physician Orders Electrocardigram (11/17/25 21:48) Chest Xray 1 View (11/17/25 21:48) Vital Signs Date Time Temp Pulse Resp B/P (MAP) Pulse Ox O2 Delivery O2 Flow Rate FiO2 11/17/25 23:54 Room Air* 0 21 11/17/25 23:54 98.7 96 18 121/79 (93) 98 98.7 11/17/25 23:00 99.3 101 22 133/71 (91) 98 99.3 11/17/25 21:03 97.5 109 24 117/86 97 97.5 Medications Medications Dose Ordered Sig/Stephanie Route Start Time Stop Time Status Last Admin Dose Admin Albuterol 5 mg ONCE ONCE NEB 11/17/25 22:00 11/17/25 22:01 DC 11/17/25 22:26 Ipratropium [place] 0.5 mg ONCE ONCE NEB 11/17/25 22:00 11/17/25 22:01 DC 11/17/25 22:26 Prednisone 40 mg ONCE ONCE PO 11/17/25 22:00 11/17/25 22:01 DC 11/17/25 23:52 Departure 1 Departure Time of Disposition: 23:50 Impression: Primary Impression: Acute respiratory distress Additional Impression: Asthma exacerbation Disposition: HOME / SELF CARE / HOMELESS Condition: Stable e-Prescriptions Prednisone (Prednisone) 20 Mg Tab 20 MG PO BID for 5 Days, #10 TAB Prov: RAI JESUS MD 11/17/25 Albuterol Sulfate (Albuterol Sulfate Hfa) 108 Mcg/Act Aer 108 MCG IN Q6HP PRN, #1 AER 3 Refills Prov: RAI JESUS MD 11/17/25 Albuterol Sulfate (Albuterol Sulfate) 0.083 % Neb 1 VIAL NEB Q4HPRN PRN, #50 VIAL Prov: RAI JESUS MD 11/17/25 Discharged With: Self Critical Care Note Critical Care Time?: No Stability Stability form required: No Heart Score Heart Score: Heart Score Response (Comments) Value History N/A 0 EKG N/A 0 Age N/A 0 Risk Factors N/A 0 Troponin N/A 0 Total 0 I personally scribed for RAI JESUS MD ([email or web address]) on 11/17/25 at 23:27. Electronically submitted by Angel Rivera [email or web address]). RAI JESUS MD Nov 17, 2025 23:27
[2025-11-17] MEDS: predniSONE 20 MG TAB PO ONE (23:52)
[2025-11-17 23:54] VITALS: BP 121/79; PULSE 96; RESP 18; TEMP 98.7; O2SAT 98
== END 2025-11-18 | disposition home or self-care (01) ==
LOC: ER 21:00
DX: J45.901 Unspecified asthma with (acute) exacerbation (principal); Z88.8 Allergy status to other drugs, medicaments and biological substances; Z91.010 Allergy to peanuts; Z91.018 Allergy to other foods; Z79.899 Other long term (current) drug therapy
CPT/HCPCS: 71045; 94640; 99283; J7512